=== PATIENT | female | born 1960 | race African-American/Black ===

== ENCOUNTER 2020-08-23 07:56 | Outpatient (REF) | payer OTHER, SELFPAY | END 2020-08-23 07:57 | disposition home or self-care (01) | LOC: HO.LAB 07:56 | PROVIDERS: Visit Provider Internal Medicine | DX: Z20.822 Contact with and (suspected) exposure to COVID-19 (principal) | CPT/HCPCS: 36415; C9803; U0003 ==

== ENCOUNTER 2020-09-06 12:48 | Outpatient (REF) | payer OTHER, SELFPAY | END 2020-09-06 12:49 | disposition home or self-care (01) | LOC: HO.LAB 12:48 | PROVIDERS: PCP Internal Medicine; Visit Provider Internal Medicine | DX: Z20.822 Contact with and (suspected) exposure to COVID-19 (principal) | CPT/HCPCS: 36415; C9803; U0003 ==

== ENCOUNTER 2021-05-02 13:27 | Outpatient (REF) | payer OTHER, SELFPAY | END 2021-05-02 13:28 | disposition home or self-care (01) | LOC: HO.LAB 13:27 | PROVIDERS: Visit Provider Internal Medicine | DX: Z20.822 Contact with and (suspected) exposure to COVID-19 (principal) | CPT/HCPCS: C9803; U0003; U0005 ==

== ENCOUNTER 2021-05-23 08:42 | Outpatient (REF) | payer OTHER, SELFPAY ==
[2021-05-23 10:15] LABS: Anion Gap 11 (12-20); Blood Urea Nitrogen 8 mg/dL (9-16); Calcium 9.6 mg/dL (8.4-10.2); Carbon Dioxide 31 mmol/L (22-29); Chloride 105 mmol/L (96-108); Cholesterol 218 mg/dL; Estimated Glomerular Filt Rate > 60; Glucose Random 82 mg/dL (60-115); HDL Cholesterol 41 mg/dL; LDL Cholesterol Calculated 135 mg/dl; Potassium 4.6 mmol/L (3.3-5.1); Sodium 142 mmol/L (135-145); Triglycerides 212 mg/dL
[2021-05-23 10:24] LABS: Estimated Average Glucose 108 mg/dL; Hemoglobin A1c % 5.4 %
[2021-05-23 10:39] LABS: T4 Thyroxine 7.9 ug/dL (4.5-12.0); Thyroid Stimulating Hormone 0.63 uIU/mL (0.32-4.0)
[2021-05-23 12:28] LABS: Creatinine Urine 29.75 mg/dL; Microalbumin Urine < 5.0 mg/L
[2021-05-26 19:41] LABS: Triiodothyronine T3 Free 3.1 pg/mL (2.3-4.2)
== END 2021-05-23 08:43 | disposition home or self-care (01) ==
LOC: HO.LAB 08:42
PROVIDERS: PCP Family Medicine; Visit Provider Family Medicine
DX: Z00.00 Encounter for general adult medical examination without abnormal findings (principal)
CPT/HCPCS: 36415; 80048; 80061; 82043; 83036; 84436; 84443; 84481

== ENCOUNTER 2021-06-20 11:05 | Outpatient (REF) | payer OTHER, SELFPAY ==
--- NOTE | ~2021-06-20 | MM_ITS ---
EXAMINATION: MM SCREENING DIGITAL BREAST TOMOSYNTHESIS, BILATERAL CLINICAL INFORMATION: Screening. Asymptomatic. The lifetime risk of breast cancer based on the Tyrer-Cuzick Model is 8%. COMPARISON: Mammography: 03/26/2017, 12/28/2015, 09/28/2014 TECHNIQUE: Digital breast tomosynthesis is performed in both the craniocaudal and mediolateral oblique views along with computer-aided detection (CAD). Synthesized 2D images are generated from the tomosynthesis. FINDINGS: The breasts are heterogeneously dense, which may obscure small masses (ACR BI-RADS breast composition Category c). There are no significant masses, abnormal calcifications, or other abnormalities. Parenchymal pattern is similar to prior studies. No developing density. There is a stable circumscribed nodule posterior 9:00 right breast likely intramammary node. There are scattered benign round calcifications. The axilla and skin contours are unremarkable. MM/MM tomosynthesis screening BI IMPRESSION: No mammographic evidence of malignancy. ASSESSMENT: BI-RADS 2: Benign RECOMMENDATION: Routine annual mammography screening. This patient's information was entered into a reminder system with a target due date for their next mammogram.
== END 2021-06-20 11:06 | disposition home or self-care (01) ==
LOC: HO.MAMMO 11:05
PROVIDERS: Visit Provider Family Medicine
DX: Z12.31 Encounter for screening mammogram for malignant neoplasm of breast (principal)
CPT/HCPCS: 77063; 77067

== ENCOUNTER 2022-03-04 09:12 | Emergency (ER) | payer OTHER, SELFPAY ==
[2022-03-04 09:23] VITALS: BP 142/77; PULSE 74; O2SAT 100
[2022-03-04 09:36] VITALS: BP 123/50; PULSE 70; RESP 18; TEMP 36.8; O2SAT 98; BMI 27.1
== END 2022-03-04 13:50 | disposition left against medical advice (07) ==
LOC: HO.ED 16:17
PROVIDERS: Emergency Provider Emergency Medicine
DX: R42 Dizziness and giddiness (principal); R11.0 Nausea; E78.00 Pure hypercholesterolemia, unspecified; F17.210 Nicotine dependence, cigarettes, uncomplicated
CPT/HCPCS: 99281

== ENCOUNTER → 2022-06-09 07:42 | Outpatient (BNVA) | payer OTHER, SELFPAY | PROVIDERS: PCP Family Medicine; Visit Provider Obstetrics & Gynecology | DX: N95.2 Postmenopausal atrophic vaginitis (principal) | CPT/HCPCS: 99202 ==

== ENCOUNTER 2022-06-26 10:33 | Outpatient (REF) | payer OTHER, SELFPAY ==
--- NOTE | ~2022-06-26 | MM_ITS ---
EXAMINATION: MM SCREENING DIGITAL BREAST TOMOSYNTHESIS, BILATERAL CLINICAL INFORMATION: Screening. Asymptomatic. Family history breast cancer, daughter. The lifetime risk of breast cancer based on the Tyrer-Cuzick Model is 6%. COMPARISON: Mammography: 06/20/2021, 03/26/2017, 12/28/2015 TECHNIQUE: Digital breast tomosynthesis is performed in both the craniocaudal and mediolateral oblique views along with computer-aided detection (CAD). Synthesized 2D images are generated from the tomosynthesis. Additional left exaggerated CC view is provided. FINDINGS: The breasts are heterogeneously dense, which may obscure small masses (ACR BI-RADS breast composition Category c). There are no significant masses, abnormal calcifications, or other abnormalities. Parenchymal pattern is similar to prior studies. No developing density. Small circumscribed nodule posterior 9:00 right breast stable. There are scattered round and vascular calcifications again seen. No significant changes from prior exams. MM/MM tomosynthesis screening BI IMPRESSION: No mammographic evidence of malignancy. ASSESSMENT: BI-RADS 2: Benign RECOMMENDATION: Routine annual mammography screening. This patient's information was entered into a reminder system with a target due date for their next mammogram.
== END 2022-06-26 10:34 | disposition home or self-care (01) ==
LOC: HO.MAMMO 10:33
PROVIDERS: Visit Provider Family Medicine
DX: Z12.31 Encounter for screening mammogram for malignant neoplasm of breast (principal)
CPT/HCPCS: 77063; 77067

== ENCOUNTER 2023-02-12 06:46 | Outpatient (REF) | payer OTHER, SELFPAY | END 2023-02-12 06:47 | disposition home or self-care (01) | LOC: HO.LAB 06:46 | PROVIDERS: PCP Family Medicine; Visit Provider Family Medicine | DX: R42 Dizziness and giddiness (principal) | CPT/HCPCS: 36415; 80053; 80061; 83036; 84443; 85025 ==

== ENCOUNTER 2023-03-26 11:00 | Outpatient (RCR) | payer OTHER, SELFPAY ==
[2023-01-22 08:11] VITALS: BP 116/60
== END 2023-04-15 08:04 | disposition home or self-care (01) ==
LOC: HO.PT 11:00
PROVIDERS: PCP Family Medicine; Visit Provider Family Medicine
DX: R42 Dizziness and giddiness (principal)
CPT/HCPCS: 95992; 97112; 97140; 97162

== ENCOUNTER 2023-12-24 08:45 | Outpatient (REF) | payer OTHER, SELFPAY ==
[2023-12-24 08:55] LABS: MANUAL DIFF FLAG NO
[2023-12-24 09:15] LABS: Basophils Percent Auto 0.5 % (0-2); Eosinophils Absolute Auto 0.2 X10*3/uL (0.0-0.4); Hematocrit 42.7 % (37.0-47.0); Hemoglobin 13.2 g/dl (12.0-16.0); Imm Gran Abs Auto 0.05 X10*3/uL (0.00-0.03); Imm Gran Pct Auto 0.7 % (0.0-0.4); Lymphocytes Absolute Auto 2.2 X10*3/uL (1.2-4.9); Lymphocytes Percent Auto 28.5 % (20-40); Mean Corpuscular HGB Conc 30.9 g/dl (31.0-35.0); Mean Corpuscular Hemoglobin 28.1 pg (27.0-33.0); Mean Platelet Volume 10.4 fL (9.4-12.3); Monocytes Absolute Auto 0.7 X10*3/uL (0.1-1.2); Monocytes Percent Auto 9.8 % (2-11); Neutrophils Absolute Auto 4.4 x10*3/uL (2.0-8.3); Neutrophils Percent Auto 58.5 % (45-73); Platelet Count 271 X10*3/uL (160-400); Red Blood Count 4.69 X10*6/uL (4.20-5.50); White Blood Count 7.5 X10*3/uL (4.8-10.8)
[2023-12-24 09:54] LABS: Erythrocyte Sedimentation Rate 23 MM/HR (0-20)
[2023-12-24 10:00] LABS: Alanine Aminotransferase 23 U/L (0-31); Albumin Level 3.8 g/dL (3.5-5.0); Alkaline Phosphatase 110 U/L (39-117); Anion Gap 12 (12-20); Aspartate Amino Transferase 21 U/L (5-31); Bilirubin Total 0.2 mg/dL (0.0-1.0); Blood Urea Nitrogen 10 mg/dL (9-16); C Reactive Protein 0.43 mg/dL (< or = 0.50); Calcium 8.6 mg/dL (8.4-10.2); Carbon Dioxide 27 mmol/L (22-29); Chloride 107 mmol/L (96-108); Cholesterol 199 mg/dL (<200); Estimated Glomerular Filt Rate > 60; Glucose Random 85 mg/dL (60-115); HDL Cholesterol 37 mg/dL (>40); LDL Cholesterol Calculated 119 mg/dL (<100); Potassium 3.9 mmol/L (3.3-5.1); Sodium 142 mmol/L (135-145); Total Protein 6.9 g/dL (6.5-8.0); Triglycerides 216 mg/dL (<150)
[2023-12-24 10:34] LABS: Rheumatoid Factor < 13.0 IU/mL (<15.0)
[2023-12-28 13:48] LABS: Anti Nuclear Antibody Screen NEGATIVE (NEGATIVE)
[2023-12-28 15:23] LABS: Cyclic Citrullinated Peptide <16 UNITS
== END 2023-12-24 08:46 | disposition home or self-care (01) ==
LOC: HO.LAB 08:45
PROVIDERS: PCP Family Medicine; Visit Provider Family Medicine
DX: M25.50 Pain in unspecified joint (principal); Z13.9 Encounter for screening, unspecified
CPT/HCPCS: 36415; 80053; 80061; 85025; 85652; 86038; 86140; 86200; 86431

== ENCOUNTER 2024-04-14 09:27 | Outpatient (REF) | payer OTHER, SELFPAY ==
--- NOTE | ~2024-04-14 | XR_ITS ---
EXAMINATION: XR KNEE, RIGHT CLINICAL INFORMATION: Right knee pain, unsteady gait COMPARISON: None available. TECHNIQUE: Three views of the right knee. FINDINGS: No fracture. No significant joint effusion. No significant degenerative findings. XR/XR knee RT 3V IMPRESSION: Normal right knee. Electronically signed by: Betito Sawant MD 04/20/2024 09:08 AM EDT
== END 2024-04-14 09:28 | disposition home or self-care (01) ==
LOC: HO.XRAY 09:27
PROVIDERS: PCP Family Medicine; Visit Provider Family Medicine
DX: M25.561 Pain in right knee (principal)
CPT/HCPCS: 73562

== ENCOUNTER 2024-04-28 08:38 | Outpatient (AMB) | payer OTHER, SELFPAY ==
--- NOTE | 2024-04-28 08:44 | A.OFFVIS_ITS ---
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 patient reports ongoing pain for about 2 month. No hx of injury. She mentions that she is unable to fully extend her knee, also her pain is on the medial aspect. Pain is worse when being on her feet for a long period of time. Patient has tried and failed gabapentin and NSAIDs. Director Of Software Engineering Services: Director Of Software Engineering Present (Nora ([id number])) Allergies aspirin [ASA] Allergy (Severe, Verified 04/28/24 08:51) DIFFICULTY BREATHING latex [LATEX] Allergy (Unknown, Verified 04/28/24 08:51) RASH,ITCHING seafood Allergy (Unknown, Verified 04/28/24 08:51) Unknown HPI HPI STAFF NURSE ICU RESOURCE TEAM - Right knee pain: Details: 63-year-old female, who is Greenlandic speaking, presents in the office today for an evaluation of right knee pain. The patient was evaluated on 03/24/24 with a complaint of right knee that had been present for about a month. She also reported the pain was accompanied by edema and decreased ROM due to discomfort. X-rays and an MRI were ordered for further evaluation. ? ? While in the office today, the patient reports ongoing pain for two months. She claims she is unable to fully extend the right knee. She reports her pain is along the medial aspect and increases when being on her feet for a long period of time. She has tried and failed gabapentin and NSAIDs. She denies any history of injury.? PFSH Medical History Dizziness GERD (gastroesophageal reflux disease) Pure hypercholesterolemia Surgical History H/O left breast biopsy History of section History of lithotripsy History of tubal ligation Family History Father No problems noted. Mother Hypertension CVD (cardiovascular disease) Maternal Grandmother Lung cancer Maternal Grandfather Esophageal cancer Paternal Grandmother Stomach cancer Paternal Grandfather Cancer Family/Other FH: mental illness Social History Household Members: Spouse Housing: House Alcohol intake: never Patient Tobacco Use Status: Current everyday Tobacco user Tobacco use type: Cigarette Cigarettes Per Day: 4 Years Smoked: 25 Current occupational status: employed Current occupation: [employer] Sexual orientation: Straight/Heterosexual Gender identity: Female Review of Systems Const All systems reviewed & are unremarkable except as noted in HPI and below Physical Exam Vital Signs: BMI result Body Mass Index 27.5 Const General: cooperative and no acute distress Orientation/consciousness: patient oriented x3 Resp Effort & Inspection: normal respiratory effort and able to speak in complete sentences Cardio Peripheral pulses: Peripheral pulses 2+ throughout Skin General skin exam: no rashes or lesions noted Neuro General: patient oriented x3 Extrem Other: Right knee: Normal to inspection. No ecchymosis, erythema, or joint effusion. No tenderness to palpation along the lateral joint line. Exquisite tenderness to the medial joint line. ROM is 0-90 degrees. Unable to perform Honorio's or anterior drawer due to patient guarding and pain. ? Office Procedures Joint Injection/Aspiration Joint Injection/Aspiration Primary Site: right knee Prep: site was prepped using aseptic technique, ethochloride spray was applied and injection warnings given Injected: 80 mg of, DepoMedrol, with 8 mL of (2% plain lido ) and in the joint Approach Used: anterolateral Procedure: The patient tolerated the procedure well, but had some pain with the injection and there was some relief with the local anesthesia Coding 28339 - Large joint Procedure code (CPT) selection complete Assessment & Plan Assessment & Plan (1) Internal derangement of right knee: Code(s): M23.91 - Unspecified internal derangement of right knee Category: Medical Plan Ms. Garcia is a 63-year-old female, who is Greenlandic speaking, presents in the office today for an evaluation of right knee pain. The patient was evaluated on 03/24/24 with a complaint of right knee that had been present for about a month. She also reported the pain was accompanied by edema and decreased ROM due to discomfort. X-rays and an MRI were ordered for further evaluation. ? ? While in the office today, the patient reports ongoing pain for two months. She claims she is unable to fully extend the right knee. She reports her pain is a long the medial aspect and increases when being on her feet for a long period of time. She has tried and failed gabapentin and NSAIDs. She denies any history of injury.? ? The patient was offered a cortisone injection in the right knee with 80 mg of Depo-Medrol. The patient was explained the risks, benefits, and alternatives to receiving this injection. After receiving consent for the injection, the patient had the procedure done while in the office today. The patient tolerated the procedure well with no complications.? ? The patient has an MRI scheduled for Sunday 05/06. She will call the office on Tuesday 05/08 to let us know this was obtained and we will monitor for results. Follow-up will be after the MRI is obtained, or sooner if needed. ? ? X-rays of the right knee, obtained on 04/14/24, revealed: no acute fracture or dislocation. ? Patient Instructions: Scribed by Antonella Aguilar medical assistant ob gyn, for Deneen Bettye SERNA on 04/28/2024 at 9:02 am, EST.? Coding Level of Care Code New Pt Level 4 (83629) Diagnoses Internal derangement of right knee M23.91 CPT Codes Coding - 42150 Large joint: 19554 - Large joint ([id number])
[2024-04-28 08:52] VITALS: BMI 27.5
== END 2024-04-28 09:32 | disposition home or self-care (01) ==
PROVIDERS: PCP Family Medicine; Visit Provider Physician Assistant
DX: M23.91 Unspecified internal derangement of right knee (principal)
CPT/HCPCS: 20610; 99204

== ENCOUNTER → 2024-04-28 08:38 | Outpatient (BNVA) | payer OTHER, SELFPAY | PROVIDERS: PCP Family Medicine; Visit Provider Physician Assistant | DX: M23.91 Unspecified internal derangement of right knee (principal) | CPT/HCPCS: 20610; 99202; J1010 ==

== ENCOUNTER 2024-11-08 17:31 | Emergency (ER) | payer MEDICARE, SELFPAY ==
[2024-11-08] VITALS (7 sets, daily range): BP systolic 123–172; BP diastolic 49–71; PULSE 58–90; RESP 16; TEMP 36.5–36.7; O2SAT 97–100; BMI 30.1
--- NOTE | ~2024-11-08 | CT_ITS ---
CLINICAL HISTORY: dizziness, headache CT head without contrast Comparison: None Findings: 5 mm low-density lesion is nonspecific in the left frontal lobe. Differential considerations include small infarction and white matter pathology. Other lesions not excluded, particularly given contralateral small focus of low-density. No acute intracranial hemorrhage or midline shift. No hydrocephalus. Bilateral basal ganglia mineralization noted. No acute skull fracture. Fluid and mucosal thickening is mild in the paranasal sinuses. Small left mastoid effusion. Scalp calcifications are small nonspecific. IMPRESSION: 1. No acute intracranial hemorrhage or hydrocephalus. 2. No arterial territorial infarction by CT. 3. Small bifrontal lesions are nonspecific by CT. Recommend additional characterization with nonemergent MRI of the brain with and without contrast. This document has been electronically signed by: Jonathon Pena MD on 11/08/2024 22:30:50
--- NOTE | 2024-11-08 18:58 | ECG_ITS ---
Test Reason : DIZZINESS Blood Pressure : */* mmHG Vent. Rate : 63 BPM Atrial Rate : 63 BPM P-R Int : 146 ms QRS Dur : 76 ms QT Int : 438 ms P-R-T Axes : 42 50 16 degrees QTcB Int : 448 ms Normal sinus rhythm Septal infarct , age undetermined Abnormal ECG When compared with ECG of 22-Mar-2018 10:02, Septal infarct is now Present Referred By: Inez Lucero Electronically Signed By: HILARIA ESCALANTE
--- NOTE | 2024-11-08 18:58 | ED.DIZZY ---
HPI - Dizziness General Chief Complaint: Dizziness Stated Complaint: hx vertigo, dizziness, nausea x2 days Time Seen by Provider: 11/08/24 18:01 Source: patient and EMS Mode of arrival: EMS Limitations: no limitations History of Present Illness ED Provider: nayla mann NP HPI Narrative: Patient is a 63-year-old female who presents emergency department for evaluation of dizziness Described as a room spinning sensation, vomiting, right-sided headache, shortness of breath . All of which is typical when she experiences episodes of vertigo. Symptoms exacerbated with head movement and eye movement. Reports onset of dizziness described as severe vertigo with onset 3 days ago overall pretty persistent despite using her meclizine 3 times daily she has not noticed any. She has been prescribed Phenergan suppositories in the past for severe vertigo but has not taken this because she simply did not want to use the suppository. She vomited 2 times a yesterday 3-4 times today, without associated abdominal pain. She admitted that earlier today she was experiencing chest pain associated with this, but believes this was due to the vomiting. Currently she is without active chest pain. she denies any recent fall or head injury, no use of anticoagulants or known coagulation disorders. Denies any numbness or tingling of the extremities. Related Data Home Medications ?Medication ?Instructions ?Recorded ?Confirmed fluticasone propionate 50 intranasal 07/15/20 07/15/20 mcg/actuation nasal spray,suspension montelukast 10 mg tablet 10 mg PO DAILY 06/09/22 (Singulair) pregabalin 50 mg capsule (Lyrica) 50 mg PO TID 06/09/22 venlafaxine 150 mg 150 mg PO DAILY 06/09/22 capsule,extended release 24 hr (Effexor XR) epinephrine 0.3 mg/0.3 mL 1 mg IM DAILY 04/28/24 injection, auto-injector gabapentin 300 mg capsule 300 mg PO TID 04/28/24 Previous Rx's ?Medication ?Instructions ?Recorded amitriptyline 50 mg tablet 50 mg PO BEDTIME #90 tabs 07/19/20 omeprazole 20 mg capsule,delayed 20 mg PO BID #180 caps 07/19/20 release meclizine 25 mg tablet 25 mg PO TID PRN for dizziness #90 09/23/20 tabs Allergies Allergy/AdvReac Type Severity Reaction Status Date / Time aspirin [ASA] Allergy Severe DIFFICULTY Verified 11/08/24 17:53 BREATHING latex [LATEX] Allergy Unknown RASH,ITCHIN Verified 11/08/24 17:53 G seafood Allergy Unknown Unknown Verified 11/08/24 17:53 Review of Systems Review of Systems: Yes all other systems are reviewed and are negative [facility] Past Medical History Attestation statement: The following information was validated with the patient. Source: old records reviewed Medical History Pure hypercholesterolemia GERD (gastroesophageal reflux disease) Dizziness Surgical History History of section H/O left breast biopsy History of lithotripsy History of tubal ligation Family History Family History Father No problems noted. Mother Hypertension CVD (cardiovascular disease) Maternal Grandmother Lung cancer Maternal Grandfather Esophageal cancer Paternal Grandmother Stomach cancer Paternal Grandfather Cancer Family/Other FH: mental illness Social History Social History Household Members: Spouse Housing: House Alcohol intake: never Patient Tobacco Use Status: Current everyday Tobacco user Tobacco use type: Cigarette Cigarettes Per Day: 4 Years Smoked: 25 Smoked in Last 30 Days: Yes Use of substances other than those prescribed or required for medical reasons: No Advance Directives: No Advance Directives Information Provided: Yes Do you have a plan to hurt others: No Plan Current occupational status: employed Current occupation: [email or web address] Sexual orientation: Straight/Heterosexual Gender identity: Female Physical Exam Vital Signs: Vital Signs: Last Vital Signs Temp 97.7 F 11/08/24 21:54 Pulse 61 11/08/24 21:54 Resp 16 11/08/24 21:54 BP 138/54 L 11/08/24 21:54 Pulse Ox 100 11/08/24 21:54 O2 Del Method Room Air 11/08/24 21:54 BMI result Body Mass Index 30.1 Appearance: Alert.?Oriented to person, place and time. No acute distress.?Normal affect. Head: Normocephalic, atraumatic. No head, sinus or TMJ tenderness.? Eyes: Sclera white, conjunctiva pink. PERRL, 3 mm bilaterally. Visual drake full to confrontation, EOMi.?No Nystagmus. Ears: Bilateral ear canals clear, TM visible with good cone of light.? Nose: Nasal mucosa pink and moist with midline septum, nares patent bilaterally.? Mouth/ Throat: Oral mucosa pink and moist without lesions. Pharynx normal Neck: Normal inspection.? Neck supple.?? CVS: Heart sounds normal. Normal heart rate and rhythm.? Pulses normal.?? Respiratory: No respiratory distress.? Lung sounds clear to auscultation bilaterally?? Abdomen: Soft and non-tender. Normoactive bowel sounds. No pulsatile mass.?? Skin: Skin warm and dry.? Normal skin color.? Normal skin turgor.?? Extremities: No lower extremity edema. Neuro: No focal neurological deficit observed, CN II-XII intact, normal sensory observed, normal coordination observed. Level of consciousness: Appropriate for age. Motor strength: right upper extremity 5 /5, left upper extremity 5 /5, right lower extremity 5 /5, left lower extremity 5 /5.?Speech: Normal, Gait: Normal, Kkwlko-[id number]-flkc test: Normal, Kmwi-mv-[id number] test: Normal. Ambulates with normal steady gait. Course Reevaluation(s) Reevaluation #1: Patient reports significant symptomatic improvement in her dizziness after receiving Phenergan and IV fluids. She does still remain with mild symptoms of vertigo but notably improved from arrival. Orthostatic vital signs were negative. CBC is without leukocytosis, anemia, or thrombocytopenia. D-dimer of 208, below VTE cutoff of 230, Wells Low risk, no tachycardia tachypnea hypoxia or chest pain. Electrolytes without acute abnormality. No ASHLEY. LFTs overall unremarkable. High sensitive troponin below detectable limits, EKG nonischemic revealing a normal sinus rhythm with ventricular rate of 63, QTC of 448. Minimally elevated inflammatory markers with ESR 48, CRP 1.68, does not have pain localized to the temporal region throbbing type headache. Urinalysis is without evidence of infection. Viral serologies are negative. Physical exam is without acute otologic process. She does state that this is a very severe episode , pending head CT to exclude acute intracranial pathology Reevaluation #2: IMPRESSION: 1. No acute intracranial hemorrhage or hydrocephalus. 2. No arterial territorial infarction by CT. 3. Small bifrontal lesions are nonspecific by CT. Recommend additional characterization with nonemergent MRI of the brain with and without contrast. Reviewed these findings with my attending Dr. Card addition to patient's presenting symptoms, do not feel as though the bifrontal lesions are an etiology for her worsening episode of vertigo today. Patient feels much improved since her arrival. She is requesting discharge home which I feel is reasonable. She is ambulatory with steady gait. Cerebellar function testing is normal. Advised outpatient follow-up with primary care provider. She was made aware of the CT findings. Reviewed worrisome signs and symptoms that would warrant re-evaluation in the emergency department. Medications Administered Discontinued Medications Generic Name Dose Route Start Last Admin Trade Name Freq PRN Reason Stop Dose Admin Sodium Chloride 1,000 mls @ 999 mls/hr 11/08/24 19:00 11/08/24 21:21 Ns IV 11/08/24 20:00 Infused .Q1H1M SHADE Infusion Promethazine HCl 25 mg 11/08/24 18:57 11/08/24 19:49 Promethazine Hcl 25 Mg Tablet PO 11/08/24 18:58 25 mg ONCE ONE Administration Medical Decision Making Medical Decision Making [facility] Narrative: Patient is a 63-year-old female past medical history of hypercholesterolemia, GERD, arthritis, vertigo who presents emergency department for evaluation of what she believes to be an episode of severe vertigo over the past 3 days with associated dizziness described as room spinning sensation vomiting right-sided headache shortness of breath and chest pain that has since resolved. She appears uncomfortable, having photosensitivity with the lights dimmed in the room. She is without hypotension, she is without signs of systemic toxicity afebrile without tachycardia tachypnea or hypoxia. She is speaking clear full sentences. On evaluation does not have any focal neurological deficits. She has no spontaneous or gaze evoked nystagmus no ataxia no diplopia no dysarthria no dysphagia no dysphonia no dysmetria. Will obtain CBC to evaluate for leukocytosis/ anemia, CMP to evaluate for abnormal electrolytes /abnormal renal function/ abnormal hepatic function, EKG and troponin to evaluate for ischemia/ACS, And with the associated shortness of breath will obtain D- dimer to exclude pulmonary embolism. Given the sudden onset of dizziness, severe intensity, episodic nature, this may in fact be consistent with BPPV as it is triggered with certain head movements eliciting dizziness. Differential Diagnosis Differential Diagnoses: The differential diagnosis associated with the presentation includes ( see narrative above) Admission/Observation Consideration of admission/observation: Escalation of care including admission/observation considered Lab Data MDM Lab Attestation statement: I reviewed the patient's lab results. 11/08/24 19:26 11/08/24 19:26 Labs: Lab Results 11/08/24 Range/Units 19:26 WBC 9.1 (4.8-10.8) X10*3/uL RBC 4.59 (4.20-5.50) X10*6/uL Hgb 13.3 (12.0-16.0) g/dl Hct 40.3 (37.0-47.0) % MCV 87.8 (80.0-98.0) fL MCH 29.0 (27.0-33.0) pg MCHC 33.0 (31.0-35.0) g/dl RDW 15.1 (11.0-16.0) % Plt Count 279 (160-400) X10*3/uL MPV 10.1 (9.4-12.3) fL Immature Gran % (Auto) 0.6 H (0.0-0.4) % Neut % (Auto) 70.8 (45-73) % Lymph % (Auto) 21.3 (20-40) % Weston % (Auto) 6.2 (2-11) % Eos % (Auto) 0.9 (0-4) % Baso % (Auto) 0.2 (0-2) % Lymph # (Auto) 1.9 (1.2-4.9) X10*3/uL Weston # (Auto) 0.6 (0.1-1.2) X10*3/uL Eos # (Auto) 0.1 (0.0-0.4) X10*3/uL Baso # (Auto) 0.0 (0.0-0.2) X10*3/uL Abs Immat Gran (auto) 0.05 H (0.00-0.03) X10*3/uL Absolute Neuts (auto) 6.4 (2.0-8.3) x10*3/uL Absolute Nucleated RBC 0.000 (0.0-0.012) X10*3/uL Nucleated RBC % (auto) 0.0 (0.0-0.2) /100WBC ESR 48 H (0-20) MM/HR D-Dimer High Sensitivty 208 NG/ML Sodium 142 (135-145) mmol/L Potassium 3.8 (3.3-5.1) mmol/L Chloride 108 (96-108) mmol/L Carbon Dioxide 26 (22-29) mmol/L Anion Gap 12 (12-20) BUN 12 (9-16) mg/dL Creatinine 0.61 (0.5-1.4) mg/dL Estim Creat Clear Calc 97.2 Estimated GFR > 60 Random Glucose 102 (60-115) mg/dL Calcium 9.4 D (8.4-10.2) mg/dL Magnesium 2.3 (1.6-2.6) mg/dL Total Bilirubin 0.2 (0.0-1.0) mg/dL AST 32 H (5-31) U/L ALT 23 (0-31) U/L Alkaline Phosphatase 101 (39-117) U/L Troponin I High Sens < 2.7 (<3.5-17.0) ng/L C-Reactive Protein 1.68 H (< or = 0.50) mg/dL Total Protein 7.2 (6.5-8.0) g/dL Albumin 4.0 (3.5-5.0) g/dL Urine Color Yellow Urine Appearance Clear Urine pH >= 9.0 (5.0-9.0) Ur Specific [place] 1.010 (1.005-1.025) Urine Protein Negative (Neg-Trace) mg/dL Urine Glucose (UA) Negative (Negative) mg/dL Urine Ketones Negative (Negative) mg/dL Urine Blood Negative (Negative) Urine Nitrite Negative (Negative) Ur Leukocyte Esterase Negative (Negative) Influenza Type A (PCR) NEGATIVE (Negative) Influenza Type B (PCR) NEGATIVE (Negative) RSV RNA Qual (PCR) NEGATIVE (Negative) SARS-CoV-2 RNA (RT-PCR) NEGATIVE (Negative) Independent Interpretation I performed an independent interpretation of an: EKG ( EKG reveals a normal sinus rhythm with ventricular rate of 63, QTC of 448, no ST elevation, Q-wave in V1 - V2, T-wave inversion lead III) Radiology Impression Discussion of test interpretation with radiology: I have reviewed the radiologist's reading. Radiologist Impression: IMPRESSION: 1. No acute intracranial hemorrhage or hydrocephalus. 2. No arterial territorial infarction by CT. 3. Small bifrontal lesions are nonspecific by CT. Recommend additional characterization with nonemergent MRI of the brain with and without contrast. Independent Historian Clinical information obtained from an independent historian. History obtained from or confirmed by: Spouse and EMS External Record Review External record reviewed: Outpatient record Chronic Conditions Patient?s care impacted by: Other ( see narrative above) Discharge Plan Discharge Clinical Impression: Vertigo, Brain lesion Patient Disposition: Home, Self-Care Instructions: Vertigo (ED) Additional Instructions: You were seen in the emergency department for evaluation of your severe episode of vertigo, you received IV fluids in addition to Phenergan with improvement in your symptoms. Blood work today was very reassuring. As discussed there was an incidental finding on the CT imaging of your brain showing lesions in the bilateral frontal areas of the brain that warrants outpatient follow-up with your primary care provider. Please contact their office tomorrow to make them aware of these findings. Return back to emergency department any new or worsening symptoms or concerns. IMPRESSION: 1. No acute intracranial hemorrhage or hydrocephalus. 2. No arterial territorial infarction by CT. 3. Small bifrontal lesions are nonspecific by CT. Recommend additional characterization with nonemergent MRI of the brain with and without contrast. Prescriptions: No Action amitriptyline 50 mg tablet 50 mg PO BEDTIME Qty: 90 1RF omeprazole 20 mg capsule,delayed release(DR/EC) 20 mg PO BID Qty: 180 1RF meclizine 25 mg tablet 25 mg PO TID PRN (Reason: for dizziness) Qty: 90 3RF fluticasone propionate 50 mcg/actuation spray,suspension intranasal venlafaxine [Effexor XR] 150 mg capsule,extended release 24hr 150 mg PO DAILY montelukast [Singulair] 10 mg tablet 10 mg PO DAILY pregabalin [Lyrica] 50 mg capsule 50 mg PO TID gabapentin 300 mg capsule 300 mg PO TID epinephrine 0.3 mg/0.3 mL auto-injector 1 mg IM DAILY Referrals: Charlee Galindo MD [Primary Care Provider] - Print Language: Azeri
[2024-11-08 19:34] LABS: MANUAL DIFF FLAG NO
[2024-11-08 19:36] LABS: Basophils Percent Auto 0.2 % (0-2); Eosinophils Absolute Auto 0.1 X10*3/uL (0.0-0.4); Eosinophils Percent Auto 0.9 % (0-4); Hematocrit 40.3 % (37.0-47.0); Hemoglobin 13.3 g/dl (12.0-16.0); Imm Gran Abs Auto 0.05 X10*3/uL (0.00-0.03); Imm Gran Pct Auto 0.6 % (0.0-0.4); Lymphocytes Absolute Auto 1.9 X10*3/uL (1.2-4.9); Lymphocytes Percent Auto 21.3 % (20-40); Mean Corpuscular Volume 87.8 fL (80.0-98.0); Mean Platelet Volume 10.1 fL (9.4-12.3); Monocytes Absolute Auto 0.6 X10*3/uL (0.1-1.2); Monocytes Percent Auto 6.2 % (2-11); Neutrophils Absolute Auto 6.4 x10*3/uL (2.0-8.3); Neutrophils Percent Auto 70.8 % (45-73); Platelet Count 279 X10*3/uL (160-400); Red Blood Count 4.59 X10*6/uL (4.20-5.50); Red Cell Distribution Width 15.1 % (11.0-16.0); White Blood Count 9.1 X10*3/uL (4.8-10.8)
[2024-11-08 19:39] LABS: Appearance Urine Clear; Color Urine Yellow; Glucose Urine UA Negative (Negative); Leukocyte Esterase Urine Negative (Negative); Nitrite Urine Negative (Negative); PH >= 9.0 (5.0-9.0); Urine Blood Negative (Negative); Urine Ketones Negative (Negative); Urine Protein Negative (Neg-Trace)
[2024-11-08 19:42] LABS: D Dimer High Sensitivity 208 NG/ML
[2024-11-08 19:47] LABS: C Reactive Protein 1.68 mg/dL (< or = 0.50)
[2024-11-08 19:49] LABS: Alanine Aminotransferase 23 U/L (0-31); Alkaline Phosphatase 101 U/L (39-117); Anion Gap 12 (12-20); Aspartate Amino Transferase 32 U/L (5-31); Bilirubin Total 0.2 mg/dL (0.0-1.0); Blood Urea Nitrogen 12 mg/dL (9-16); Calcium 9.4 mg/dL (8.4-10.2); Carbon Dioxide 26 mmol/L (22-29); Chloride 108 mmol/L (96-108); Creatinine Clr Calc Pharmacy 97.2; Estimated Glomerular Filt Rate > 60; Glucose Random 102 mg/dL (60-115); Magnesium 2.3 mg/dL (1.6-2.6); Potassium 3.8 mmol/L (3.3-5.1); Sodium 142 mmol/L (135-145); Total Protein 7.2 g/dL (6.5-8.0)
[2024-11-08] MEDS: Promethazine HCL 25 MG TABLET PO (19:49)
[2024-11-08] MEDS: 0.9 % Sodium Chloride 1,000 ML 999 ML IV (19:51)
[2024-11-08 19:58] LABS: Troponin-I High Sensitivity < 2.7 ng/L (<3.5-17.0)
[2024-11-08 20:12] LABS: Influenza A PCR NEGATIVE (Negative); Influenza B PCR NEGATIVE (Negative); Resp Syncy Virus RNA Qual PCR NEGATIVE (Negative); SARS COV2 PCR INHOUSE NEGATIVE (Negative)
[2024-11-08 20:13] LABS: Erythrocyte Sedimentation Rate 48 MM/HR (0-20)
== END 2024-11-08 23:41 | disposition home or self-care (01) ==
PROVIDERS: Nurse Practitioner Family; Emergency Provider Emergency Medicine Emergency Medical Services; PCP Family Medicine
DX: R42 Dizziness and giddiness (principal); R11.0 Nausea; R94.31 Abnormal electrocardiogram [ECG] [EKG]; Z03.818 Encounter for observation for suspected exposure to other biological agents ruled out; Z79.899 Other long term (current) drug therapy
CPT/HCPCS: 0241U; 36415; 70450; 80053; 81003; 83735; 84484; 85025; 85379; 85652; 86140; 93005; 96360; 99284; 99285

== ENCOUNTER → 2024-11-08 18:58 | Outpatient (BNV) | payer MEDICARE, SELFPAY | PROVIDERS: Emergency Provider Emergency Medicine Emergency Medical Services; PCP Family Medicine; Visit Provider Internal Medicine | DX: R94.31 Abnormal electrocardiogram [ECG] [EKG] (principal); R42 Dizziness and giddiness | CPT/HCPCS: 93010 ==

== ENCOUNTER → 2024-11-08 21:20 | Outpatient (BNV) | payer MEDICARE, SELFPAY | PROVIDERS: Emergency Provider Emergency Medicine Emergency Medical Services; PCP Family Medicine; Visit Provider Radiology Neuroradiology | DX: R90.0 Intracranial space-occupying lesion found on diagnostic imaging of central nervous system (principal) | CPT/HCPCS: 70450 ==

== ENCOUNTER → 2025-02-10 12:30 | Outpatient (BNV) | payer MEDICARE, SELFPAY | PROVIDERS: PCP Family Medicine; Visit Provider Radiology Diagnostic Radiology | DX: G93.89 Other specified disorders of brain (principal) | CPT/HCPCS: 70553 ==

== ENCOUNTER 2025-02-10 12:42 | Outpatient (REF) | payer MEDICARE, SELFPAY ==
--- NOTE | ~2025-02-10 | MR_ITS ---
EXAMINATION: MR BRAIN WITHOUT AND WITH CONTRAST CLINICAL INFORMATION: Bifrontal small white matter lesions seen on CT. Mild headaches and dizziness. COMPARISON: CT head 11/08/2024. No prior MRI. TECHNIQUE: Multiplanar, multisequence MRI of the brain was obtained before and after the intravenous administration of 7.5 mL Gadavist. Examination performed on a 1.5 Jaye Siemens high-field unit. FINDINGS: There is no diffusion restriction. There is no intracranial hemorrhage, acute infarction, mass effect, or edema. Ventricles, sulci, and cisterns are normal in size and configuration for patient age. No shift of midline. No abnormal hemosiderin deposition is identified. There are a numerous scattered punctate and minimally confluent foci of white matter T2 hyperintensity in the periventricular, subcortical, and hemispheric deep white matter. Foci are seen in the central and posterior francisco as well. There are a few T1 hypointense foci. No definite callosal lesions. There are several pericallosal and callosal marginal lesions, raising the possibility of demyelinating disease. In addition, there is diffuse hyperintensity at the callosal septal interface, a finding which can be associated with demyelinating disease. The overall distribution and morphology is nonspecific, and could be related to small vessel ischemic changes and/or inflammatory demyelination. There is no abnormal intra or extra-axial enhancement after the administration of contrast. Midline structures appear normally formed. No callosal atrophy. The pituitary gland appears normal. Posterior fossa structures appear normal. Cerebellar tonsils are minimally low-lying, without meeting criteria for Chiari I malformation. Major flow voids are preserved within the skull base. The globes and orbital contents demonstrate no abnormalities. Optic nerves appear normal in signal. Paranasal sinuses demonstrate minimal mucosal thickening. No significant sinus disease. Nasal septum is midline without spur. The mastoids and tympanic cavities are normally aerated. Extracranial soft tissues demonstrate no abnormalities. No suspicious bone marrow changes are evident. Atlantoaxial joint is normal. MR/MR head/brain wo/w con IMPRESSION: 1. No evidence of intracranial hemorrhage, acute infarction, mass effect, or edema. 2. Numerous scattered punctate and minimally confluent T2 hyperintense white matter foci as described. There are a few T1 hypointense lesions. There are no enhancing lesions and there is no diffusion restriction. Differential includes inflammatory demyelination versus mild to moderate small vessel ischemic changes. 3. No abnormal intra or extra-axial enhancement after contrast administration. Electronically signed by: Og Sandoval MD 02/12/2025 09:25 AM EDT
--- OUTSIDE RECORDS SUMMARY | 2025-02-10 12:44 | XMS_ITS | Encounter Summary ---
Author Organization [employer] Address [address] [place] [address] Care Team Providers Care Patient Coordinator Name Role Phone Charlee Galindo MD Primary Care Provider [phone] Reason for Visit * Reason Comments Med Refill Encounter Details Date Type Department Care Team ([facility] Contact Info) Description 12/05/2024 Refill [facility] [address] [place], [place] [phone] Meggan Wallace MD [address] [place] [address] Vertigo Social History Tobacco Use Types Packs/Day Years Used Date Smoking Tobacco: Every Day Cigarettes Passive Smoke Exposure: Never Smokeless Tobacco: Never Depression Answer Date Recorded Patient Health Questionnaire-9 Score 13 10/29/2023 Patient Health Questionnaire-9 Score 13 10/29/2023 Last PHQ-9: Questionnaire Data Not on file 0 10/29/2023 Housing Stability Answer Date Recorded What is your housing situation today? I have irvin schafer 10/29/[address] you li ve. Do you have problems with any of the following? None of the above 10/29/2023 Food Insecurity Answer Date Recorded Within the past 12 months, y ou worried that your food would run out before you got money to buy more: Never True 10/29/2023 Within the past 12 months,th e food you bought just didn't last and you didn't have enough money to get more: Never True Transportation Answer Date Recorded In the past 12 months, has l ack of transportation kept you from medical appts, meetings, work or from getting things needed for daily living? No 10/29/2023 Utilities Answer Date Recorded In the past 12 months, has t he electric, gas, oil or water company threatened to shut off services in your home? No 10/29/2023 Depression Answer Date Recorded Patient Health Questionnaire-2 Score 2 10/29/2023 Comments No Sex and Gender Information Value Date Recorded Sex Assigned at Female 06/08/2022 10:39 AM EDT Legal Sex Female 10:39 AM EDT Gender Identity Female 06/08/2022 10:39 AM EDT Sexual Orientation Straight 06/08/2022 10 :39 AM EDT documented as of this encounter Plan of Treatment Not on file documented as of this encounter Visit Diagnoses Diagnosis Vertigo Dizziness and giddiness documented in this encounter Additional Health Concerns Assessment Noted Time PHQ-9 Depression Total Score: 13 024 2:35 PM EDT documented as of this encounter Care Teams Patient Coordinator Relationship Specialty Start Date End Date Charlee Galindo MD [address] [place] [id number] PCP - General Family Medicine 05/09/21 documented as of this encounter
== END 2025-02-10 12:43 | disposition home or self-care (01) ==
LOC: HO.MRI 12:42
PROVIDERS: PCP Family Medicine; Visit Provider Family Medicine
DX: G93.9 Disorder of brain, unspecified (principal)
CPT/HCPCS: 70553; A9585

== ENCOUNTER 2025-03-02 14:27 | Outpatient (AMB) | payer MEDICARE, SELFPAY ==
--- OUTSIDE RECORDS SUMMARY | 2023-10-27 09:27 | XMS_ITS | Continuity of Care Document ---
Author Organization [employer] Address [address] [place] [address] Phone Care Team Providers Care Senior Corporate Recruiter Name Role Phone NOV RN, Provider Unavailable Unavailable Allergies, Adverse Reactions, Alerts Substance Reaction Status Criticality aspirin Active No Information Medications Medication Instructions Dosage Effective Dates (start - stop) Status Comments cephalexin 500 mg capsule take 1 capsule by oral route every 6 hours 500 MG - Active clopidogrel 75 mg tablet take 1 tablet by oral route every day 75 MG - Active enalapril maleate 10 mg tablet take 1 tablet by oral route every day 10 MG - Active omeprazole 20 mg tablet,delayed release - Active Procedures Procedure Date OFFICE/OUTPATIENT VISIT EST DIAST BP> = 90 MM HG URINALYSIS NONAUTO W/O SCOPE SYST BP> = 140 MM HG6 IT OFFICE/OUTPATIENT VISIT, NEW URINE CULTURE/COLONY COUNT Advance Directives Directive Yes / No Effective Date File Name No Information Encounters Encounter Description Practice Location Reason(s) For Visit Diagnoses Date Provider Providers Copied on Encounter [facility], [address] [place], [address], tel:[phone] [place] [address] INTMT No Information 4 NOV Provider. [address] [place], [address]. tel:[phone] OFFICE/OUTPA TIENT VISIT [facility], [address] [place], [address], [place] tel:[phone] [facility] telephone (chief complaint) urine results (chief complaint) Acute cystitis with hematuria 2 Obhany Senaa. [address] [place] [address] [place], [address], [place]. tel:[phone] OFFICE/OUTPA TIENT VISIT, [facility], [address] [place], [address], [place] tel:[phone] [facility] pt here for uti (chief complaint) UTI symptomsAcute cystitis with hematuriaElevat ed systolic blood pressure reading with diagnosis of hypertension 2 Obhany Senaa. [address] [place] [address] [place], [address], [place]. tel:[phone] Family History Family Member Type Diagnosis Age At Onset No Information Payers Payer name Insurance type Covered democrat ID Authoriza tion(s) No Information Social History Type Description Quantity Date Captured Comments Sex Female Smoking Status No Information Chief Complaint And Reason For Visit No Information Reason For Referral Reason For Referral No Information Plan Of Treatment Date Type Action Status Goal Tobacco Use Counseling/Inter vention. Due on due Goal Depression screening. Due on due Goal Td vaccine. Due on due Goal Lipid panel. Due on due Goal Influenza vaccine. Due on due Goal Hypertention Screening. Due on due Goal Fecal Occult Blood Testing. Due on due Goal PAP. Due on due Goal Colonoscopy. Due on due Goal Mammogram. Due on due Goal Zoster vaccine (1st). Due on due Goal Pap/HPV testing. Due on due Goal Mammogram. Due on due Goal Colonoscopy. Due on due Goal Hypertention Screening. Due on due Goal Lipid panel. Due on due Goal PAP. Due on due Goal Fecal Occult Blood Testing. Due on due Goal Td vaccine. Due on due Goal Tobacco Use Counseling/Inter vention. Due on due Goal Depression screening. Due on due Goal Tdap. Due on due Goal Zoster vaccine (1st). Due on due Goal Influenza vaccine. Due on due Goal Pap/HPV testing. Due on due Goal Tdap. Due on due Goal Fecal Occult Blood Testing. Due on due Goal Colonoscopy. Due on due Goal Hemoglobin A1c. Due on due Goal Mammogram. Due on due Goal Td vaccine. Due on due Goal Zoster vaccine (). Due on due Goal Depression screening. Due on due Goal Tobacco Use Counseling/Inter vention. Due on due Goal Pap/HPV testing. Due on due Goal PAP. Due on due Goal Hypertention Screening. Due on due Goal Influenza vaccine. Due on Ap due Goal Lipid panel. Due on 022 due History Of Present Illness Encounter Date Complaint History Of Prese nt Illness urine results Aggravating fact ors include n/a. Relieving factors include n/a. appointment for urine resultsPatient is 60 y.o. (6016) phone appointment today to review her urine [...] pt states she drink a lot of te,avalenzuela maPatient is 60 y.o. (6016) here today for c/o of frequency if urination. she reported she initially had dysuria but she started drinking a lot of different. The pain went away but she has urinary frequency and she urinates adequately. Functional Status Date Functional Assessmen t No Information Instructions Date Instruction Additional Infor [...] hematuria Assessments Type Assessment Date No Information Patient Care Teams Name Effective Dates (start - stop) Status Members No Information
--- OUTSIDE RECORDS SUMMARY | 2025-03-02 14:29 | XMS_ITS | Encounter Summary ---
Author Organization [employer] Address [address] [place] [address] Care Team Providers Care Trouble Tracer Name Role Phone Charlee Galindo MD Primary Care Provider Reason for Visit * Reason Comments Med Refill Encounter Details Date Type Department Care Team ([facility] Contact Info) Description 12/05/2024 Refill [facility] [address] [place], [place] [phone] Meggan Wallace MD [address] [place] [address] Vertigo Social History Tobacco Use Types Packs/Day [...] documented as of this encounter Care Teams Trouble Tracer Relationship Specialty Start Date End Date Charlee Galindo MD [address] [place] [id number] PCP - General Family Medicine 05/09/21 documented as of this encounter
--- NOTE | 2025-03-02 14:43 | MHC.OFFVIS ---
Intake Visit Reasons: OV-RT knee f/u last inj 04/28/24 Intake Note: Jovanna is a 64 year old female who presents today for a follow up of her Right Knee OA. Last injection (80mg) was administered to the right knee on 04/28/24. Patient reports injection provided her with relief, stating her pain returned about 3 months ago. She complains of bilatreal knee pain with her right knee being the worse. Her pain is located around her entire knee and at times travels down her leg. She complains of bilateral ankle swelling. Difficulty with walking. Denies injury. Finds little to no relief with Tylenol, topical patches, elevation and icing. Allergies aspirin (ASA) Allergy (Severe, Verified 03/02/25 14:54) DIFFICULTY BREATHING latex (LATEX) Allergy (Unknown, Verified 03/02/25 14:54) RASH,ITCHING seafood Allergy (Unknown, Verified 03/02/25 14:54) Unknown HPI HPI OV-RT knee f/u last inj 04/28/24: Details: Ms. Garcia is a 64-year-old female who presents to the office today for bilateral knee pain. She had a right knee cortisone injection on 04/28/2024. This gave her great relief. She is looking to see if she can have both knees injected while in the office today. [facility] Medical History Pure hypercholesterolemia GERD (gastroesophageal reflux disease) Dizziness Surgical History History of section H/O left breast biopsy History of lithotripsy History of tubal ligation Family History Father No problems noted. Mother Hypertension CVD (cardiovascular disease) Maternal Grandmother Lung cancer Maternal Grandfather Esophageal cancer Paternal Grandmother Stomach cancer Paternal Grandfather Cancer Family/Other FH: mental illness Social History Household Members: Spouse Housing: House Alcohol intake: never Patient Tobacco Use Status: Current everyday Tobacco user Tobacco use type: Cigarette Cigarettes Per Day: 4 Years Smoked: 25 Current occupational status: employed Current occupation: [employer] Sexual orientation: Straight/Heterosexual Gender identity: Female Review of Systems Const All systems reviewed & are unremarkable except as noted in HPI and below Physical Exam Const General: cooperative and no acute distress Resp Effort & Inspection: normal respiratory effort and able to speak in complete sentences Extrem Other: Bilateral knees: Normal to inspection. No ecchymosis, erythema, or joint effusion. No tenderness to palpation along the lateral joint line. Tenderness to the medial joint line bilaterally. ROM is 0-90 degrees. Unable to perform Honorio's or anterior drawer due to patient guarding and pain. ? Office Procedures AMB Joint Injection/Aspiration Joint Injection/Aspiration Primary Site: right knee Secondary Site: left knee Prep: site was prepped using aseptic technique, ethochloride spray was applied and injection warnings given Injected: 80 mg of, DepoMedrol, with 8 mL of (2% plain lidocaine) and in the joint Approach Used: anterolateral Procedure: The patient tolerated the procedure well, but had some pain with the injection and there was some relief with the local anesthesia Coding 79670 - Bilateral Large Joint Procedure code (CPT) selection complete Assessment & Plan Assessment & Plan (1) Internal derangement of right knee: Code(s): M23.91 - Unspecified internal derangement of right knee Category: Medical (2) Internal derangement of left knee: Code(s): M23.92 - Unspecified internal derangement of left knee Category: Medical Plan The patient was offered a cortisone injection in bilateral knees with 80 mg of DepoMedrol. The patient was explained the risks, benefits, and alternatives to receiving this injection. After receiving consent for the injection, the patient had the procedure done while in the office today. The patient tolerated the procedure well but did have some pain with no complications. Follow-up will be PRN, or sooner if needed Coding Level of Care Code Est Pt Level 3 (58287) Diagnoses Internal derangement of right knee M23.91 Internal derangement of left knee M23.92 CPT Codes Coding - 57746 - Bilateral Large Joint: 82642 - Bilateral Large Joint ([id number])
== END 2025-03-02 15:14 | disposition home or self-care (01) ==
LOC: HO.HOS 14:28
PROVIDERS: PCP Family Medicine; Visit Provider Physician Assistant
DX: M23.91 Unspecified internal derangement of right knee (principal); M23.92 Unspecified internal derangement of left knee
CPT/HCPCS: 20610; 99213

== ENCOUNTER → 2025-03-02 14:27 | Outpatient (BNVA) | payer MEDICARE, SELFPAY | PROVIDERS: PCP Family Medicine; Visit Provider Physician Assistant | DX: M23.92 Unspecified internal derangement of left knee (principal); M25.561 Pain in right knee; M23.91 Unspecified internal derangement of right knee; M25.562 Pain in left knee; M17.11 Unilateral primary osteoarthritis, right knee; Z79.52 Long term (current) use of systemic steroids | CPT/HCPCS: 20610; 99212; J1010; J2003 ==

== ENCOUNTER 2025-04-13 08:37 | Outpatient (REF) | payer MEDICARE, SELFPAY ==
--- OUTSIDE RECORDS SUMMARY | 2023-10-27 09:27 | XMS_ITS | Continuity of Care Document ---
Author Organization [employer] Address [address] [place] [address] Phone Care Team Providers Care Brick Pitcher Name Role Phone NOV RN, Provider Unavailable [...] Diagnoses Date Provider Providers Copied on Encounter [facility], [address] [place], [address], tel:[phone] [place] [address] INTMT No Information 4 NOV Provider. [address] [place], [address]. tel:[phone] OFFICE/OUTPA TIENT VISIT [facility], [address] [place], [address], [place] tel:[phone] [facility] telephone (chief complaint) urine results (chief complaint) Acute cystitis with hematuria 2 Obana Reba. [address] [place] [address] [place], [address], [place]. tel:[phone] OFFICE/OUTPA TIENT VISIT, [facility], [address] [place], [address], [place] tel:[phone] [facility] pt here for uti (chief complaint) UTI symptomsAcute cystitis with hematuriaElevat ed systolic blood pressure reading with diagnosis of hypertension 2 Obana Reba. [address] [place] [address] [place], [address], [place]. tel:[phone] Family History Family Member Type Diagnosis Age At Onset No Information Payers Payer name Insurance type Covered libertarian ID Authoriza tion(s) No Information Social History Type Description Quantity Date Captured Comments Sex Female Smoking Status No Information Chief Complaint And Reason For Visit No Information Reason For Referral Reason For Referral No Information Plan Of Treatment Date Type Action Status Goal Mammogram. Due on due Goal Depression screening. Due on due Goal Lipid panel. Due on due Goal PAP. Due on due Goal Tobacco Use Counseling/Inter vention. Due on due Goal Influenza vaccine. Due on due Goal Zoster vaccine (1st). Due on due Goal Td vaccine. Due on due Goal Pap/HPV testing. Due on due Goal Colonoscopy. Due on due Goal Hypertention Screening. Due on due Goal Fecal Occult Blood Testing. Due on due Goal Pap/HPV testing. Due on due Goal Zoster vaccine (). Due on due Goal Colonoscopy. Due on due Goal Td vaccine. Due on due Goal PAP. Due on due Goal Influenza vaccine. Due on due Goal Hypertention Screening. Due on due Goal Lipid panel. Due on due Goal Depression screening. Due on due Goal Mammogram. Due on due Goal Fecal Occult Blood Testing. Due on due Goal Tdap. Due on due Goal Tobacco Use Counseling/Inter vention. Due on due Goal Tdap. Due on [...]
--- OUTSIDE RECORDS SUMMARY | 2025-04-13 09:07 | XMS_ITS | Encounter Summary ---
Author Organization [employer] Address [address] [facility] [address] [place] [address] Care Team Providers Care Team Assembler Name Role Phone Charlee Galindo MD Primary Care Provider [phone] Reason for Visit * Reason Comments Med Refill Encounter Details Date Type Department Care Team ([facility] Contact Info) Description 12/05/2024 Refill [facility] [address], [place] [phone] Meggan Wallace MD [address] [place] [address] Vertigo Social History Tobacco Use Types Packs/Day [...] documented as of this encounter Care Teams Team Assembler Relationship Specialty Start Date End Date Charlee Galindo MD [address] [place] [id number] PCP - General Family Medicine 05/09/21 documented as of this encounter
--- OUTSIDE RECORDS SUMMARY | 2025-04-13 09:07 | XMS_ITS | Encounter Summary ---
Author Organization [employer] Address [address] [facility] [address] [place] [address] Care Team Providers Care Scale Operator Name Role Phone Charlee Galindo MD Primary Care Provider [phone] Reason for Visit * Reason Onset Date Comments Referral 03/02/2025 Encounter Details Date Type Department Care Team ([facility] st Contact Info) Description 03/02/2025 Telephone C [facility] [address] [place], [place] [phone] Charlee Galindo MD [address] [place] [address] Referral Social History Tobacco Use Types Packs/Day Years Used Date Smoking Tobacco: Every Day Cigarettes Passive Smoke Exposure: Never Smokeless Tobacco: Never Depression Answer Date Recorded Patient Health Questionnaire-9 Score 12 12/29/2024 Patient Health Questionnaire-9 Score 12 12/29/2024 Last PHQ-9: Questionnaire Data Not on file 0 12/29/2024 Housing Stability Answer Date Recorded What is [...] Answer Date Recorded Patient Health Questionnaire-2 Score 4 12/29/2024 Comments No Sex and Gender Information Value Date Recorded Sex Assigned at Female 06/08/2022 10:39 AM EDT Legal Sex Female 10:39 AM EDT Gender Identity Female 06/08/2022 10:39 AM EDT Sexual Orientation Straight 06/08/2022 10 :39 AM EDT documented as of this encounter Miscellaneous Notes * Telephone Encounter - Stephanie Santos - 03/05/2025 11:46 AM EDT VM left for patient to call us back regarding request. [facility] doesn't have a dermatology department, not sure if patient was referring to dermatology here at [facility]. * Telephone Encounter - Hannah Quinones - 03/02/2025 9:37 AM EDT Tc from pt requesting dermatology at [facility]. Pt stated PCP is aware of concerns. Denied triage Contact pt at [phone] documented in this encounter Plan of Treatment Not on file documented as of this encounter Visit Diagnoses Not on filedocumented in this encounter Additional Health Concerns Assessment Noted Time PHQ-9 Depression Total Score: 12 025 10:03 AM EDT documented as of this encounter Care Teams Scale Operator Relationship Specialty Start Date End Date Charlee Galindo MD [address] [place] [address] PCP - General Family Medicine 05/09/21 documented as of this encounter
--- OUTSIDE RECORDS SUMMARY | 2025-04-13 09:07 | XMS_ITS | Clinical Summary ---
Author Organization [employer] Address [address] [facility] 7[address] [place] [address] Care Team Providers Care Instrument Engineer Name Role Phone Charlee Galindo MD Primary Care Provider [phone] Allergies Active Allergy Reactions Criticality Noted Date Comments Aspirin Unknown Low 05/09/2021 Rash Latex Rash Low 05/09/2021 Shellfish-Derived Products Anaphylaxis High 09/18/19 23 Has epipen Medications * This document contains information received from the source organization and may not represent a complete record from that organization. fluticasone furoate (Arnuity Ellipta) 100 MCG/ACT inhaler Inhale 1 puff in the morning. Rinse mouth with water after use to reduce aftertaste and incidence of candidiasis. Do not swallow. 1 each 11 024 Active albuterol 108 (90 Base) MCG/ACT inhaler Inhale 2 puffs every 4 (four) hours if needed for wheezing. 18 g 024 Active EPINEPHrine (Epipen) 0.3 MG/0.3ML injection syringe INJECT CONTENTS OF 1 PEN INTRAMUSCULARLY ONCE NEEDED FOR SEVERE ALLERGIC REACTION 2 each 024 Active Restasis 0.05 % ophthalmic emulsion instill 1 drop into each eye twice daily 025 Active Xiidra 5 % solution instill 1 drop into each eye twice daily 025 Active meclizine (Antivert) 25 MG tabletIndication s:Vertigo Take 1 tablet (25 mg) by mouth if needed in the morning, at noon, and at bedtime for dizziness. 90 tablet 2 025 Active promethazine (Phenergan) 12.5 MG suppositoryIndic ations:Vertigo Insert 1 suppository (12.5 mg) into the rectum if needed in the morning and at bedtime for nausea or vomiting. 60 each 2 025 Active venlafaxine XR (Effexor XR) 150 MG 24 hr capsuleIndicatio ns:Other polyneuropathy TAKE 1 CAPSULE BY MOUTH EVERY MORNING 90 capsule 1 025 Active Nirmatrelvir&Rit onavir 300/100 (Paxlovid, 300/100,) 20 x 150 MG & 10 x 100MG tablet therapy pack Take 1 Dose by mouth 2 times daily. HOLD ROSUVASTATIN while taking this medication 30 each 025 Active gabapentin (Neurontin) 300 MG capsule TAKE 1 CAPSULE BY MOUTH THREE TIMES DAILY 90 capsule 2 025 Active rosuvastatin (Crestor) 40 MG tablet TAKE 1 TABLET BY MOUTH EVERY DAY 90 tablet 025 Active rosuvastatin (Crestor) 40 MG tablet Take 1 tablet by mouth once daily 90 tablet 1 024 2024 Discontinued Active Problems Problem Noted Date Diagnosed Date Brain lesion 12/29/2024 Assessment & Plan (01/02/2025 9:47 AM EDT): Patient reports head injuries detected on tomography, showing very small bifrontal lesions. An MRI of the head with and without contrast has been recommended for further evaluation. Plan: - Proceed with MRI of the head with and without contrast as recommended - Follow up to review MRI results and reassess neurological symptoms Facial mass 12/29/2024 Assessment & Plan (01/02/2025 9:47 AM EDT): Patient reports a hard bump on the forehead, suspected to be an epidermal inclusion cyst. Plan: - Refer to dough panner for evaluation and potential treatment of forehead lesion Dry eyes, bilateral 03/24/2024 Assessment & Plan (03/26/2024 10:00 PM EDT): Pt was referred to Ophthalmology for further evaluation. Chronic pain of right knee 03/24/2024 Assessment & Plan (01/02/2025 9:48 AM EDT): Patient reports right knee pain and requests referral for injection therapy. Patient was previously seen at [facility] for this issue. Plan: - Refer to orthopedist for evaluation and potential knee injection Assessment & Plan (03/26/2024 10:02 PM EDT): Suspicion of meniscus tear. Will send pt for XR and MRI. Pt will also be referred to Orthopedic Surgeon. Hyperlipidemia 12/31/2023 Assessment & Plan (02/08/2024 11:29 AM EDT): The 10-year ASCVD risk score (Shira RAMIREZ, et al., 2019) is: 14.7% Values used to calculate the score: Age: 63 years Sex: Female Is Non- : No Diabetic: No Tobacco smoker: Yes Systolic Blood Pressure: 144 mmHg Is BP treated: No HDL Cholesterol: 37 mg/dL Total Cholesterol: 199 mg/dL Currently on medication, will need to review regimen and compliance Fibromyalgia 12/31/2023 Current moderate episode of major depressive disorder without prior episode 11/30/2023 Overview (11/30/2023): During IBH Consult Jovanna presenting with depressed mood, loss of interests/pleasure , changes in sleep difficulty falling asleep, difficulty staying asleep , and restless, unsatisfying sleep, trouble concentrating, fatigue/loss of energy, hopelessness, decreased libido; for a period of 6-12 mo, for all symptoms in the context of relationship issues. Assessment & Plan (01/15/2025 10:46 AM EDT): Due to this dx, pt qualifies for Paxlovid due to potential worsening of COVID outcomes with comorbid depression. Assessment & Plan (11/30/2023 11:02 AM EDT): PLAN: (check all that apply) New/Additional Services needed Off-site services for Behavioral Health Integration Plan External OP therapy referral Patient Self Plan Patient to utilize skills provided in intervention and Patient to reach out to [facility] team as needed Polyarthralgia 10/29/2023 Assessment & Plan (10/30/2023 3:07 AM EDT): Ordered labs to R/O fibromyalgia. Labs: CBC, CMP, Sed Rate, C-reactive, Rheumatoid Factor, CCP, ROMERO Screen Vertigo 09/18/2022 Assessment & Plan (10/30/2023 3:08 AM EDT): I will refer patient to vestibular therapy for dizziness. Assessment & Plan (12/11/2022 11:06 AM EDT): Patient with persistent symptoms, no improvement or exacerbation. Will send for labs and refer to optometry. Assessment & Plan (09/18/2022 2:26 PM EST): Chronic hx of vertigo, will send to vestibular rehab. Refilled patients prescription for megace, phenergan & meclizine. Chronic back pain 09/18/2022 Chronic GERD 09/18/2022 Chronic arm pain 09/18/2022 Chronic pain of left lower extremity 09/18/2022 Encounters Date Type Department Care Team Description 03/24/2025 Refill [facility] [address] [place] [address] Charlee Galindo MD 03/02/2025 Telephone [facility] [address] [place] [address] Charlee Galindo MD Referral 02/17/2025 Refill [facility] [address] [place] [address] Charlee Galindo MD 02/13/2025 Results Follow-Up [facility] [address] [place] [address] Charlee Galindo MD Mr Brain w/ and w/o Contrast 01/12/2025 3:20 PM EDT Office Visit [facility] [address] [place] [address] Fabby Squires MD COVID-19 (Primary Dx); Hyperlipidemia, unspecified hyperlipidemia type; Current moderate episode of major depressive disorder without prior episode (CMS/[facility]) 01/12/2025 Travel 01/12/2025 Telephone [facility] [address] [place] [address] Charlee Galindo MD Nurse Triage from Last 3 Months Immunizations Immunization Administration Dates Next Due Influenza injectable quadriv alent preservative free 04/24/2022,05/09/2021,07/15/2020,2018,05/24/2018 Pfizer Covid-19 Vaccine 12+ 12/07/2020, Pneumococcal Conjugate PCV 20 03/24/2024 Tdap 11/23/2018,03/09/2014 Social History Tobacco Use Types Packs/Day Years Used Date Smoking Tobacco: Every Day Cigarettes Passive Smoke Exposure: Never Smokeless Tobacco: Never Tobacco Cessation:Ready to Q uit: Not Asked; Counseling Given: Not Answered Depression Answer Date Recorded Patient Health Questionnaire-9 [...] Orientation Straight 06/08/2022 10 :39 AM EDT Last Filed Vital Signs Vital Sign Reading Time Taken Comments Blood Pressure 107/81 01/12/2025 3:02 PM EDT Pulse 77 01/12/2025 3:02 PM EDT Temperature 36.7 C (98 F) 01/12/2025 3:02 PM EDT Respiratory Rate 16 01/12/2025 3:02 PM EDT Oxygen Saturation 100% 01/12/2025 3:02 PM EDT Inhaled Oxygen Concentration - - Weight 78.9 kg (174 lb) 01/12/2025 3:02 PM EDT Height 165.1 cm (5' 5 ) 01/12/2025 3:02 PM EDT Body Mass Index 28.96 01/12/2025 3:02 PM EDT Plan of Treatment Health Maintenance Due Date Last Done Comments CT Colonography 1960 Colonoscopy 1960 FIT 1960 Sigmoidoscopy 1960 Alcohol/Substance Use Screening 1970 Hepatitis C Screening 1976 Zoster Vaccines (1 of 2) 2008 FOBT 09/30/2023 09/30/2022 Mammogram 06/26/2024 06/26/2022, 06/20/2021 SDOH Screening 10/28/2024 10/29/2023 COVID-19 Vaccine ( season) 2025 06/01/2024, 05/27/2023, 12/07/2020, Additional history exists Influenza Vaccine (#1) 2025 , 05/09/2021, 07/15/2020, Additional history exists Depression Monitoring 07/01/2025 12/29/2024, 025 Colorectal Cancer Screening 09/30/2025 FIT DNA/Cologuard 09/30/2025 09/30/2022 Tobacco Screening 01/12/2026 01/12/2025 DTaP/Tdap/Td Vaccines (3 - Td or Tdap) 11/23/2028 11/23/2018, 03/09/2014 Lipid Panel 12/23/2028 12/24/2023, 07/0 02/2023, 05/23/2021 RSV Patients and Patients Aged 60 years or older (1 - 1-dose 75+ series) 2033 Cervical Cancer Screening Discontinued HPV/Cotest Discontinued 04/24/2022 Pap Smear Discontinued 04/24/2022 Pneumococcal Vaccine: 50+ Years Completed 03/24/2024 HIB Vaccines Aged Out No longer eligi ble based on patient's age to complete this topic HPV Vaccines Aged Out No longer eligi ble based on patient's age to complete this topic Hepatitis A Vaccines Aged Out No long er eligible based on patient's age to complete this topic Hepatitis B Vaccines Aged Out No long er eligible based on patient's age to complete this topic IPV Vaccines Aged Out No longer eligi ble based on patient's age to complete this topic Meningococcal B Vaccine Aged Out No l onger eligible based on patient's age to complete this topic Meningococcal Vaccine Aged Out No danyell santiago eligible based on patient's age to complete this topic RSV under 20 months Aged Out No longe r eligible based on patient's age to complete this topic Rotavirus Vaccines Aged Out No longer eligible based on patient's age to complete this topic Procedures Procedure Name Priority Date/Time Associated Diagnosis Comments MR BRAIN W AND WO CONTRAST Routine 02/10/2025 12:30 PM EDT Brain lesion POCT COVID-19 AG RAMOS ID NOW Routine 01/12/2025 3:08 PM EDT COVID-19 LIPID PANEL, STANDARD Routine 12/24/2023 8:54 AM EDT Encounter for health-related screening LAB COLOGUARD COLON CANCER SCREEN Routine 09/30/2022 MAMMOGRAM GENERIC Routine 06/26/2022 11: 15 AM EST THINPREP IMAGING PAP AND HPV MRNA E6/E7 WITH REFLEX TO HPV 16,18/45 Routine 04/24/2022 12:00 AM EDT from Last 3 Months or Most Recently Relevant to Health Maintenance Results * Mr Brain w/ and w/o Contrast (02/10/2025 12:30 PM EDT) Anatomical Region Laterality Modality Brain Magnetic Resonan ce 02/10/2025 12:3 0 PM EDT Narrative 02/12/2025 9:28 AM EDT [address] [address] Magnetic Resonance Report Signed Patient: Jovanna Garcia MR#: [id number] : 1960 Acct:[id number] Age/Sex: 64 / F ADM Date: 02/10/25 Loc: HO.MRI Attending Dr: Charlee Galindo MD Ordering Physician: Chalree Galindo MD Date of Service: 02/10/25 Procedure(s): MR head/brain wo/w con Accession Number(s): [id number] cc: Charlee Galindo MD EXAMINATION: MR BRAIN WITHOUT AND WITH CONTRAST CLINICAL INFORMATION: Bifrontal small white matter lesions seen on CT. Mild headaches and dizziness. COMPARISON: CT head 11/08/2024. No prior MRI. TECHNIQUE: Multiplanar, multisequence MRI of the brain was obtained before and after the intravenous administration of 7.5 mL Gadavist. Examination performed on a 1.5 Jaye Siemens high-field unit. FINDINGS: There is no diffusion restriction. There is no intracranial hemorrhage, acute infarction, mass effect, or edema. Ventricles, sulci, and cisterns are normal in size and configuration for patient age. No shift of midline. No abnormal hemosiderin deposition is identified. There are a numerous scattered punctate and minimally confluent foci of white matter T2 hyperintensity in the periventricular, subcortical, and hemispheric deep white matter. Foci are seen in the central and posterior francisco as well. There are a few T1 hypointense foci. No definite callosal lesions. There are several pericallosal and callosal marginal lesions, raising the possibility of demyelinating disease. In addition, there is diffuse hyperintensity at the callosal septal interface, a finding which can be associated with demyelinating disease. The overall distribution and morphology is nonspecific, and could be related to small vessel ischemic changes and/or inflammatory demyelination. There is no abnormal intra or extra-axial enhancement after the administration of contrast. Midline structures appear normally formed. No callosal atrophy. The pituitary gland appears normal. Posterior fossa structures appear normal. Cerebellar tonsils are minimally low-lying, without meeting criteria for Chiari I malformation. Major flow voids are preserved within the skull base. The globes and orbital contents demonstrate no abnormalities. Optic nerves appear normal in signal. Paranasal sinuses demonstrate minimal mucosal thickening. No significant sinus disease. Nasal septum is midline without spur. The mastoids and tympanic cavities are normally aerated. Extracranial soft tissues demonstrate no abnormalities. No suspicious bone marrow changes are evident. Atlantoaxial joint is normal. MR/MR head/brain wo/w con IMPRESSION: 1. No evidence of intracranial hemorrhage, acute infarction, mass effect, or edema. 2. Numerous scattered punctate and minimally confluent T2 hyperintense white matter foci as described. There are a few T1 hypointense lesions. There are no enhancing lesions and there is no diffusion restriction. Differential includes inflammatory demyelination versus mild to moderate small vessel ischemic changes. 3. No abnormal intra or extra-axial enhancement after contrast administration. Electronically signed by: Og Sandoval MD 02/12/2025 09:25 AM EDT Dictated By: Og Sandoval MD Signed By: <Electronically signed by Og Sandoval MD in OV> 02/12/25924 DD/ 1230 TD/TT: 02/10/25 1325 Icer Machine Operator: Procedure Note Donotuseinterpreter, Image - 02/12/2025 [place] [address] Magnetic Resonance Report Signed Patient: Donn Garcia#: [id number] : 9Acct:[id number] Age/Sex: 64 / FADM Date: 02/10/25 Loc: HO.MRI Attending Dr: Charlee Galindo MD Ordering Physician: Charlee Galindo MD Date of Service: 02/10/25 Procedure(s): MR head/brain wo/w con Accession Number(s): [id number] cc: Charlee Galindo MD EXAMINATION: MR BRAIN WITHOUT AND WITH CONTRAST CLINICAL INFORMATION: Bifrontal small white matter lesions seen on CT. Mild headaches and dizziness. COMPARISON: CT head 11/08/2024. No prior MRI. TECHNIQUE: Multiplanar, multisequence MRI of the brain was obtained before and after the intravenous administration of 7.5 mL Gadavist. Examination performed on a 1.5 Jaye Siemens high-field unit. FINDINGS: There is no diffusion restriction. There is no intracranial hemorrhage, acute infarction, mass effect, or edema. Ventricles, sulci, and cisterns are normal in size and configuration for patient age. No shift of midline. No abnormal hemosiderin deposition is identified. There are a numerous scattered punctate and minimally confluent foci of white matter T2 hyperintensity in the periventricular, subcortical, and hemispheric deep white matter. Foci are seen in the central and posterior francisco as well. There are a few T1 hypointense foci. No definite callosal lesions. There are several pericallosal and callosal marginal lesions, raising the possibility of demyelinating disease. In addition, there is diffuse hyperintensity at the callosal septal interface, a finding which can be associated with demyelinating disease. The overall distribution and morphology is nonspecific, and could be related to small vessel ischemic changes and/or inflammatory demyelination. There is no abnormal intra or extra-axial enhancement after the administration of contrast. Midline structures appear normally formed. No callosal atrophy. The pituitary gland appears normal. Posterior fossa structures appear normal. Cerebellar tonsils are minimally low-lying, without meeting criteria for Chiari I malformation. Major flow voids are preserved within the skull base. The globes and orbital contents demonstrate no abnormalities. Optic nerves appear normal in signal. Paranasal sinuses demonstrate minimal mucosal thickening. No significant sinus disease. Nasal septum is midline without spur. The mastoids and tympanic cavities are normally aerated. Extracranial soft tissues demonstrate no abnormalities. No suspicious bone marrow changes are evident. Atlantoaxial joint is normal. MR/MR head/brain wo/w con IMPRESSION: 1. No evidence of intracranial hemorrhage, acute infarction, mass effect, or edema. 2. Numerous scattered punctate and minimally confluent T2 hyperintense white matter foci as described. There are a few T1 hypointense lesions. There are no enhancing lesions and there is no diffusion restriction. Differential includes inflammatory demyelination versus mild to moderate small vessel ischemic changes. 3. No abnormal intra or extra-axial enhancement after contrast administration. Electronically signed by: Og Sandoval MD 02/12/2025 09:25 AM EDT Dictated By: Og Sandoval MD Signed By: <Electronically signed by Og Sandoval MD in OV> 02/12/25 0925 DD/ 1230 TD/TT: 02/10/25 1325 Icer Machine Operator: Charlee Galindo MD IMG MRI PROCEDURES Final Resu lt * (ABNORMAL) POCT COVID-19 Ag Ramos ID NOW (01/12/2025 3:08 PM EDT) Coronavirus Antigen PCR Positive (A) Negative, Indeterminate, None Detected, Invalid, Specimen unsatisfactory for evaluation, Weakly Positive, 2+ Swab 01/12/2025 3:08 PM EDT Fabby Squires MD POINT OF CARE TEST ENTER/EDIT ORDERABLES Final Result * (ABNORMAL) Lipid Panel, Standard (12/24/2023 8:54 AM EDT) Triglycerides 216(H) <150 mg/dL [facility] Comment:Desirable Triglyceri de: less than 150 mg/dLBorderline High Triglyceride 150-199 mg/dLHigh Triglyceride: 200-499 mg/dLVery High Triglyceride: greater than or equal to 5OO mg/dL Cholesterol 199 <200 mg/dL [facility] Comment:Desirable Cholestero l: less than 200 mg/dLBorderline High Cholesterol: 200-239 mg/dLHigh Cholesterol: greater than 239 mg/dL LDL Cholesterol Calculated 119(H) <100 mg/dL [facility] Comment:Desirable LDL: less than 100 mg/dLNear Optimal/Above Optimal LDL: 110- 129 mg/dLBorderline High LDL: 130-159 mg/dLHigh LDL: 160-189 mg/dLVery High LDL: greater than or equal to 190 mg/dL HDL Cholesterol 37(L) >40 mg/dL [facility] Comment:Desirable HDL: great er than 40 mg/dL Note: This HDL assay may give artificially low results in patients with liver disease. Blood Venous blood specimen / Unknown 12/24/2023 8:54 AM EDT 12/24/2023 8:54 AM EDT Charlee Galindo MD LAB BLOOD ORDERABLES Final Re sult [facility] [address] [place] [address] [phone] * Cologuard?? colon cancer screening (09/30/2022) Cologuard Cancer Screen Negative Stool 09/30/[address] [facility] Charlee Galindo MD LAB MOLECULAR DIAGNOSTICS ORD ERABLES Final Result * Mammography Report 1 (06/26/2022 11:15 AM EST) Anatomical Region Laterality Modality Breast Bilateral Mammography 06/26/2022 11:1 5 AM EST Narrative 06/29/2022 10:04 AM EST Refer to the Notes tab for result details [facility] Procedure: Mammography Report 1 Procedure Note ProviderMukul MD - 11/01/2022 Refer to the Notes tab for result details [facility] Procedure: Mammography Report [address] [facility] Charlee Galindo MD IMG BI PROCEDURES Final Resul t * THINPREP TIS PAP AND HPV mRNA E6/E7 WITH REFLEX TO HPV 16,18/45 (04/24/2022 12:00 AM EDT) Clinical Information: None given [facility] COMMENT SEE COMMENT [facility] Comment: EXPLANATORY NOTE: The Pap is a screening test for cervical cancer. It is not a diagnostic test and is subject to false negative and false positive results. It is most reliable when a satisfactory sample, regularly obtained, is submitted with relevant clinical findings and history, and when the Pap result is evaluated along with historic and current clinical information. COMMENT: This Pap test has been evaluated with computer assisted technology. [facility] Cytotechnologis t: SEE COMMENT [facility] Comment: GSG, CT(ASCP) CT screening location: [place] [address] HPV nRNA E6/E7 Not Detected Not Detected [facility] Comment: Methodology: [employer] Assistant-Mediated Amplification This assay detects E6/E7 viral messenger RNA (mRNA) from 14 high-risk HPV types (16,18,31,33,35,39,45,51,52,56,58,59,66,68). Cervical sources are required for HPV testing. If a vaginal source from a patient who has had a total hysterectomy with removal of cervix was submitted, please contact the testing laboratory for alternative testing options. For additional information, please refer to http://education.FirstJob/faq/[email or web address] (This link if provided for information/ educational purposes only.) Interpretation/ Result: Negative for intraepithelial lesion or malignancy. [facility] LMP: NONE [facility] Prev. BX: NONE [facility]IV[facility] Prev. PAP: NONE [facility]IV[facility] SOURCE: None given [facility] Statement Of Adequacy: SEE COMMENT [facility] Comment: Satisfactory for evaluation. Endocervical/transformation zone component present. 04/24/2022 us Charlee Galindo MD LAB PATHOLOGY ORDERABLES Angelica garcia Result [facility] [address] from Last 3 Months or Most Recently Relevant to Health Maintenance Insurance MEDICARE MEDICARE [place] [employer] Care Teams Instrument Engineer Relationship Specialty Start Date End Date Charlee Galindo MD [address] [place] [phone] PCP - General Family Medicine 05/09/21
--- OUTSIDE RECORDS SUMMARY | 2025-04-13 09:07 | XMS_ITS | Encounter Summary ---
Author Organization [employer] Address [address] [facility] [address] [place] [address] Care Team Providers Care Steam Oven Operator Name Role Phone Charlee Galindo MD Primary Care Provider [phone] Reason for Visit * Reason Comments Med Refill Encounter Details Date Type Department Care Team ([facility] Contact Info) Description 04/09/2023 Refill [facility] [address] [place], [place] [phone] Charlee Galindo MD [address] [place] [address] Social History Tobacco Use Types Packs/Day Years Used Date Smoking Tobacco: Every Day Cigarettes Passive Smoke Exposure: Never Smokeless Tobacco: Never Depression Answer Date Recorded Patient Health Questionnaire-9 Score 3 09/18/2022 Depression Answer Date Recorded Patient Health Questionnaire-2 Score 0 09/18/2022 Comments Unknown Sex and Gender Information Value Date Recorded [...] Assessment Noted Time PHQ-9 Depression Total Score: 3 09/18/19 23 8:57 AM EST documented as of this encounter Care Teams Steam Oven Operator Relationship Specialty Start Date End Date Charlee Galindo MD [address] [place] [id number] PCP - General Family Medicine 05/09/21 documented as of this encounter
[2025-04-13 09:46] LABS: Cholesterol 135 mg/dL (<200); HDL Cholesterol 36 mg/dL (>40); Triglycerides 212 mg/dL (<150)
[2025-04-13 10:05] LABS: ~HepC Num1 0.08 S/CO (0.00-0.79); ~Hepatitis C Antibody Nonreactive (Nonreactive)
== END 2025-04-13 08:38 | disposition home or self-care (01) ==
LOC: HO.LAB 08:37
PROVIDERS: PCP Family Medicine; Visit Provider Family Medicine
DX: E78.5 Hyperlipidemia, unspecified (principal); Z13.9 Encounter for screening, unspecified; Z11.59 Encounter for screening for other viral diseases
CPT/HCPCS: 36415; 80061; 86803

== ENCOUNTER 2025-06-29 07:39 | Outpatient (REF) | payer MEDICARE, SELFPAY ==
--- OUTSIDE RECORDS SUMMARY | 2023-10-27 08:27 | XMS_ITS | Continuity of Care Document ---
Author Organization [employer] Address [address] [place] [address] Phone Care Team Providers Care Bleach Boiler Puller Name Role Phone NOV RN, Provider Unavailable Unavailable Allergies, Adverse Reactions, Alerts Substance Reaction Status Criticality aspirin Active No Information Medications Medication Instructions Dosage Dose Quantity Effective Dates (start - stop) Status Indication Fill Status Comments cephalexin 500 mg capsule take 1 capsule by oral route every 6 hours 10 MG 1 tablet 2 - Active clopidogrel 75 mg tablet take 1 tablet by oral route every day 10 MG 1 tablet - Active enalapril maleate 10 mg tablet take 1 tablet by oral route every day 10 MG 1 tablet - Active omeprazole 20 mg tablet,delay ed release 10 MG 1 tablet - Active Advance Directives Directive Yes / No Effective Date File Name No Information Encounters Encounter Description Practice Location Reason(s) For Visit Diagnoses Date Provider Encounter Disposition [facility], [address] [place], [address], tel:[phone] [place] [address] INTMT No Information 4 JUN Provider. [address] [place] [address], [address]. tel:[phone] [facility], [address] [place], [address], tel:[phone] [facility] telephone (chief complaint) urine results (chief complaint) Acute cystitis with hematuria 2 Obhany Britton. [address] [place], [address], [place]. tel:[phone] [facility], [address] [place], [address], [place] tel:[phone] [facility] pt here for uti (chief complaint) UTI symptomsAcute cystitis with hematuriaElev ated systolic blood pressure reading with diagnosis of hypertension 2 Crispin Britton. [address] [place], [address], [place]. tel:[phone] Family History Family Member Type Diagnosis Age At Onset No Information Payers Payer name Insurance type Identifiers Authorization(s) Com ments No Information Social History Type Description Quantity Date Captured Comments Sex Female Smoking Status No Information Current Gender Female (finding) Chief Complaint And Reason For Visit No Information Plan Of Treatment Date Type Action Status Goal Pap/HPV testing. Due on due Goal Zoster vaccine (). Due on due Goal Mammogram. Due on due Goal Colonoscopy. Due on 024 due Goal PAP. Due on due Goal Fecal Occult Blood Testing. Due on due Goal Hypertention Screening. Due on due Goal Influenza vaccine. Due on due Goal Lipid panel. Due on 024 due Goal Td vaccine. Due on due Goal Depression screening. Due on due Goal Tobacco Use Counseling/Inter vention. Due on due Goal Pap/HPV testing. Due on due Goal Influenza vaccine. Due on due Goal Zoster vaccine (). Due on due Goal Tdap. Due on due Goal Depression screening. Due on due Goal Tobacco Use Counseling/Inter vention. Due on due Goal Td vaccine. Due on due Goal Fecal Occult Blood Testing. Due on due Goal PAP. Due on due Goal Lipid panel. Due on due Goal Hypertention Screening. Due on due Goal Colonoscopy. Due on due Goal Mammogram. Due on due Goal Lipid panel. Due on due Goal Influenza vaccine. Due on due Goal Hypertention Screening. Due on due Goal PAP. Due on due Goal Pap/HPV testing. Due on due Goal Tobacco Use Counseling/Inter vention. Due on due Goal Depression screening. Due on due Goal Zoster vaccine (). Due on due Goal Td vaccine. Due on due Goal Mammogram. Due on due Goal Hemoglobin A1c. Due on due Goal Colonoscopy. Due on due Goal Fecal Occult Blood Testing. Due on due Goal Tdap. Due on due History Of Present Illness Encounter Date Complaint History Of Prese nt Illness urine results Aggravating fact ors include n/a. Relieving factors include n/a. appointment for urine resultsPatient is 60 y.o. (9399) phone appointment today to review her urine test results. She concern about her taking anti-coagulant and the persistent blood in her urine. telephone Aggravating fact ors include n/a. Relieving factors include n/a. Patient evaluated by telephone/video in place of face to face. Clinician determined this service was medically necessary and clinically appropriate to be delivered remotely. Provider reviewed confidentiality with patient and patient fully understands and gave verbal consent to provider for telehealth services. Patient is appropriate for Telehealth services. pt here for uti Aggravating fact ors include n/a. Relieving factors include n/a. pt present because of UTI symptoms, per pt states she don't have any burning sensation , she is going good to the restrooms but a lot of times, pt states she drink a lot of te,bj maPatient is 60 y.o. (3192) here today for c/o of frequency if urination. she reported she initially had dysuria but she started drinking a lot of different. The pain went away but she has urinary frequency and she urinates adequately. Functional Status Date Description Comments No Information Instructions Date Instruction Additional Infor amanda Urinalysis-WBC sara ase-plus+Occult blood- trace.I advised continue and finish her antibiotic.Need to make appointment with FP-PCP to evaluate further her microscopic hematuria and her elevated BP despite of her blood pressure medication. Related to Acute cystitis with hematuria Patient needs to see her FP- primary to review her BP.ER precautions. Related to Elevated systolic blood pressure reading with diagnosis of hypertension Cephalexin 500 mg PO Q 6 hours x 7 days. Hydrate. Call back if symptoms persist/ worsens after 2-3 days taking the antibiotic. Go to ER if the clinic is close.Follow-up in one week. Related to Acute cystitis with hematuria Assessments Type Assessment Date No Information
--- NOTE | ~2025-06-29 | MM_ITS ---
EXAMINATION: MM SCREENING DIGITAL BREAST TOMOSYNTHESIS, BILATERAL CLINICAL INFORMATION: Screening. Asymptomatic. COMPARISON: Mammography: Comparison is made with available priors TECHNIQUE: Digital breast mammography with tomosynthesis is performed in both the craniocaudal and mediolateral oblique views along with computer-aided detection (CAD). FINDINGS: The breasts are heterogeneously dense, which may obscure small masses. There are no significant masses, abnormal calcifications, or other abnormalities. MM/MM tomosynthesis screening BI IMPRESSION: No mammographic evidence of malignancy. ASSESSMENT: BI-RADS Category 1: Negative RECOMMENDATION: Routine annual mammography screening. 1 year F/U This examination should not preclude the clinical evaluation of a suspicious palpable abnormality. This patient's information was entered into a reminder system with a target due date for their next mammogram. Electronically signed by: Emy Marie DO 07/02/2025 05:05 PM MOODY
--- OUTSIDE RECORDS SUMMARY | 2025-06-29 07:41 | XMS_ITS | Encounter Summary ---
Author Organization [email or web address] Address [address] [facility] 7t [place] [address] Care Team Providers Care Sulphate Tester Name Role Phone Charlee Galindo MD Primary Care Provider [phone] Reason for Visit * Reason Onset Date Comments Referral 03/02/2025 Encounter Details Date Type Department Care Team ([facility] st Contact Info) Description 03/02/2025 Telephone C [facility] [address] [place], [place] [phone] Charlee Galindo MD [address] [place] [address] Referral Social History Tobacco Use Types Packs/Day [...] patient to call us back regarding request. [facility] doesn't have a dermatology department, not sure if patient was referring to dermatology here at [facility]. * Telephone Encounter - Hannah Quinones - 03/02/2025 9:37 AM EDT Tc from pt requesting dermatology at [facility]. Pt stated PCP is aware of concerns. Denied triage Contact pt at [phone] documented in this encounter Plan of Treatment Not on file documented as of this encounter Visit Diagnoses Not on filedocumented in this encounter Additional Health Concerns Assessment Noted Time PHQ-9 Depression Total Score: 12 025 10:03 AM EDT documented as of this encounter Care Teams Sulphate Tester Relationship Specialty Start Date End Date Charlee Galindo MD [address] [place] [address] PCP - General Family Medicine 05/09/21 documented as of this encounter
--- OUTSIDE RECORDS SUMMARY | 2025-06-29 07:41 | XMS_ITS | Encounter Summary ---
Author Organization [employer] Address [address] [facility] 7t [place] [address] Care Team Providers Care Manpower Development Manager Name Role Phone Charlee Galindo MD Primary Care Provider [phone] Reason for Visit * Reason Comments Med Refill Encounter Details Date Type Department Care Team ([facility] Contact Info) Description 12/05/2024 Refill [facility] [address] [place], [place] [phone] Meggna Wallace MD [address] [place] [address] Vertigo Social History Tobacco Use Types Packs/Day [...] documented as of this encounter Care Teams Manpower Development Manager Relationship Specialty Start Date End Date Charlee Galindo MD [address] [place] [phone] PCP - General Family Medicine 05/09/21 documented as of this encounter
--- OUTSIDE RECORDS SUMMARY | 2025-06-29 07:42 | XMS_ITS | Clinical Summary ---
Author Organization [employer] Address [address] [facility] 7t [place] [address] Care Team Providers Care Public Accountant Name Role Phone Charlee Galindo MD Primary Care Provider [phone] Allergies Active Allergy Reactions Criticality Noted Date Comments Aspirin Unknown Low 05/09/2021 Rash Latex Rash Low 05/09/2021 Shellfish Protein-Containing Drug Products Anaphylaxis High 09/18/2022 Has epipen Medications * This document contains information received from the source organization and may not represent a complete record from that organization. EPINEPHrine (Epipen) 0.3 MG/0.3ML injection syringe INJECT [...] EVERY MORNING 90 capsule 1 025 Active gabapentin (Neurontin) 300 MG capsule TAKE 1 CAPSULE BY MOUTH THREE TIMES DAILY 90 capsule 2 07/14/2 025 Active rosuvastatin (Crestor) 40 MG tablet TAKE 1 TABLET BY MOUTH EVERY DAY 90 tablet Active albuterol 108 (90 Base) MCG/ACT inhaler INHALE 2 PUFFS BY MOUTH EVERY 4 HOURS NEEDED FOR WHEEZING 18 g Active fluticasone (Flonase) 50 MCG/ACT nasal spray Administer 1-2 sprays into each nostril Once per day. Shake gently. Before first use, prime pump. After use, clean tip and replace cap. 16 g 2 025 2025 Active fluticasone furoate (Arnuity Ellipta) 200 MCG/ACT inhaler Inhale 1 puff Once per day. Rinse mouth with water after use to reduce aftertaste and incidence of candidiasis. Do not swallow. 1 each 11 025 2025 Active montelukast (Singulair) 10 MG tablet Take 1 tablet (10 mg) by mouth Once per day. 30 tablet 2 2025 Active fexofenadine (Veronica) 180 MG tablet Take 1 tablet (180 mg) by mouth if needed each day (Allergies). 90 tablet 1 2025 Active fluticasone furoate (Arnuity Ellipta) 100 MCG/ACT inhaler Inhale 1 puff in the morning. Rinse mouth with water after use to reduce aftertaste and incidence of candidiasis. Do not swallow. 1 each 024 2024 Discontinued( Ineffective) Xiidra 5 % solution instill 1 drop into each eye twice daily 025 2024 Discontinued Nirmatrelvir&Rit onavir 300/100 (Paxlovid, 300/100,) 20 x 150 MG & 10 x 100MG tablet therapy pack Take 1 Dose by mouth 2 times daily. HOLD ROSUVASTATIN while taking this medication 30 each 025 2024 Discontinued predniSONE (Deltasone) 20 MG tabletIndication s:Moderate persistent asthma with acute exacerbation Take 2 tablets (40 mg) by mouth Once per day for 5 days. 10 tablet 025 2024 Active Problems Problem Noted Date Diagnosed Date Obstructive sleep apnea syndrome 06/15/2025 Overview (06/15/2025): CPAP Tinnitus 06/15/2025 Brain lesion 12/29/2024 Assessment & Plan (01/02/2025 [...] epidermal inclusion cyst. Plan: - Refer to kitchen steward for evaluation and potential treatment of forehead lesion Dry eyes, bilateral 03/24/2024 Assessment & Plan (03/26/2024 10:00 PM EDT): Pt was referred to Ophthalmology for further evaluation. Chronic pain of right knee 03/24/2024 Assessment & Plan (01/02/2025 9:48 AM EDT): Patient reports right knee pain and requests referral for injection therapy. Patient was previously seen at [facility] for this issue. Plan: - Refer to [...] of major depressive disorder without prior episode ([facility]/HCC) 11/30/2023 Overview (11/30/2023): During [facility] Consult Jovanna [...] intervention and Patient to reach out to [facility] team as needed Polyarthralgia 10/29/2023 Assessment & [...] Encounters Date Type Department Care Team Description 06/15/2025 8:45 AM EST Office Visit [facility] [address] [place] [address] Charlee Galindo MD Moderate persistent asthma with acute exacerbation (Primary Dx); Obstructive sleep apnea syndrome; Tinnitus, unspecified laterality; Vertigo; Hyperlipidemia, unspecified hyperlipidemia type 06/15/2025 Travel 06/14/2025 Travel 06/14/2025 Telephone [facility] [address] [place] [address] Charlee Galindo MD Chart Prep 05/25/2025 Refill [facility] [address] [place] [address] Charlee Galindo MD from Last 3 Months Immunizations Immunization Administration [...] housing situation today? I have irvin schafer 06/15/[address] you li ve. Do you have problems with any of the following? None of the above 06/15/2025 Food Insecurity Answer Date Recorded Within the past 12 months, y ou worried that your food would run out before you got money to buy more: Never True 06/15/2025 Within the past 12 months,th e food you bought just didn't last and you didn't have enough money to get more: Never True 02/2025 Transportation Answer Date Recorded In the past 12 months, has l ack of transportation kept you from medical appts, meetings, work or from getting things needed for daily living? No 06/15/2025 Utilities Answer Date Recorded In the past 12 months, has t he electric, gas, oil or water company threatened to shut off services in your home? No 06/15/2025 Depression Answer Date Recorded Patient Health Questionnaire-2 Score 4 12/29/2024 Internet Access Answer Date Recorded Internet Access Q1 Yes 06/15/2025 Internet Access Q2 Not on file 06/15/2025 Comments No Sex and Gender Information Value Date Recorded Sex Assigned at Female 06/08/2022 10:39 AM EDT Legal Sex Female 10:39 AM EDT Gender Identity Female 06/08/2022 10:39 AM EDT Sexual Orientation Straight 06/08/2022 10 :39 AM EDT Last Filed Vital Signs Vital Sign Reading Time Taken Comments Blood Pressure 126/60 06/15/2025 8:57 AM EST Pulse 82 06/15/2025 8:57 AM EST Temperature 36.6 C (97.8 F) 06/15/2025 8:57 AM EST Respiratory Rate 20 06/15/2025 8:57 AM EST Oxygen Saturation 98% 06/15/2025 8:57 AM EST Inhaled Oxygen Concentration - - Weight 79.8 kg (176 lb) 06/15/2025 8:57 AM EST Height 165.1 cm (5' 5 ) 06/15/2025 8:57 AM EST Body Mass Index 29.29 06/15/2025 8:57 AM EST Plan of Treatment Health Maintenance Due Date Last Done Comments CT Colonography 1958 Colonoscopy 1958 FIT 1958 Sigmoidoscopy 1960 Alcohol/Substance Use Screening 1970 RSV Patients and Patients Aged 60 years or older (1 - Risk 50-74 years 1-dose series) 2008 Zoster Vaccines (1 of 2) 2008 FOBT 09/30/2023 09/30/2022 Mammogram 06/26/2024 06/26/2022, 06/20/2021 COVID-19 Vaccine ( season) 2025 06/01/2024, 05/27/2023, 12/07/2020, Additional history exists Influenza Vaccine (#1) 2025 , 05/09/2021, 07/15/2020, Additional history exists Depression Monitoring 07/01/2025 12/29/2024, 025 Colorectal Cancer Screening 09/30/2025 FIT DNA/Cologuard 09/30/2025 09/30/2022 SDOH Screening 06/15/2026 06/15/2025 Tobacco Screening 06/15/2026 06/15/2025 DTaP/Tdap/Td Vaccines (3 - Td or Tdap) 11/23/2028 11/23/2018, 03/09/2014 Lipid Panel 04/13/2030 04/13/2025, 12/07, 02/12/2023, Additional history exists Cervical Cancer Screening Discontinued HPV/Cotest Discontinued 04/24/2022 Pap Smear Discontinued 04/24/2022 Pneumococcal Vaccine: 50+ Years Completed 03/24/2024 Hepatitis C Screening Completed 04/13/2025 HIB Vaccines Aged Out No longer eligi [...] Procedure Name Priority Date/Time Associated Diagnosis Comments HEPATITIS C AB W/REFL TO HCV RNA, QN, PCR Routine 04/13/2025 8:50 AM EDT Encounter for health-related screening LIPID PANEL, STANDARD Routine 04/13/2025 8:50 AM EDT Hyperlipidemia, unspecified hyperlipidemia type LAB COLOGUARD COLON CANCER SCREEN Routine 09/30/2022 MAMMOGRAM GENERIC Routine 06/26/2022 11: 15 AM EST THINPREP IMAGING PAP AND HPV MRNA E6/E7 WITH REFLEX TO HPV 16,18/45 Routine 04/24/2022 12:00 AM EDT from Last 3 Months or Most Recently Relevant to Health Maintenance Results * Hepatitis C Antibody with Reflex to HCV, RNA, Quantitative, Real-Time PCR (04/13/2025 8:50 AM EDT) Hepatitis C Antibody Nonreactive Nonreactive [facility] Comment:Antibodies to HCV no t detected; does not exclude early acuteHCV infection. Blood Venous blood specimen / Unknown 04/13/2025 8:50 AM EDT 04/13/2025 8:50 AM EDT us Charlee Galindo MD LAB BLOOD ORDERABLES Final Re sult [facility] [address] [place] [phone] * (ABNORMAL) Lipid Panel, Standard (04/13/2025 8:50 AM EDT) Triglycerides 212(H) <150 mg/dL [facility] Comment:Desirable Triglyceri de: less than 150 mg/dLBorderline High Triglyceride 150-199 mg/dLHigh Triglyceride: 200-499 mg/dLVery High Triglyceride: greater than or equal to 5OO mg/dL Cholesterol 135 <200 mg/dL [facility] Comment:Desirable Cholestero l: less than 200 mg/dLBorderline High Cholesterol: 200-239 mg/dLHigh Cholesterol: greater than 239 mg/dL LDL Cholesterol Calculated 57 <100 mg/dL [facility] Comment:Desirable LDL: less than 100 mg/dLNear Optimal/Above Optimal LDL: 110- 129 mg/dLBorderline High LDL: 130-159 mg/dLHigh LDL: 160-189 mg/dLVery High LDL: greater than or equal to 190 mg/dL HDL Cholesterol 36(L) >40 mg/dL [facility] Comment:Desirable HDL: great er than 40 mg/dL Note: This HDL assay may give artificially low results in patients with liver disease. Blood Venous blood specimen / Unknown 04/13/2025 8:50 AM EDT 04/13/2025 8:50 AM EDT Charlee Galindo MD LAB BLOOD ORDERABLES Final Re sult [facility] [address] [place] [phone] * Cologuard?? colon cancer screening (09/30/2022) Cologuard Cancer Screen Negative Stool 09/30/2022 Charlee Galindo MD LAB MOLECULAR DIAGNOSTICS ORD ERABLES Final Result * Mammography Report 1 (06/26/2022 11:15 AM EST) Anatomical Region Laterality Modality Breast Bilateral Mammography 06/26/2022 11:1 5 AM EST Narrative 06/29/2022 10:04 AM EST Refer to the Notes tab for result details [facility] Procedure: Mammography Report 1 Procedure Note Provider, MD Mukul - 11/01/2022 Refer to the Notes tab for result details [facility] Procedure: Mammography Report 1 Charlee Galindo MD IMG BI PROCEDURES Final Resul t * THINPREP TIS PAP AND HPV mRNA E6/E7 WITH REFLEX TO HPV 16,18/45 (04/24/2022 12:00 AM EDT) Clinical Information: None given [facility] COMMENT SEE COMMENT [facility] [...] has been evaluated with computer assisted technology. [facility] Cytotechnologis t: SEE COMMENT [facility] Comment: GSG, CT(ASCP) CT screening location: [place] [address] HPV nRNA E6/E7 Not Detected Not Detected [facility] Comment: Methodology: Inside Sales Assistant-Mediated Amplification This assay detects E6/E7 viral messenger RNA (mRNA) from 14 high-risk HPV types (16,18,31,33,35,39,45,51,52,56,58,59,66,68). Cervical sources are required for HPV testing. If a vaginal source from a patient who has had a total hysterectomy with removal of cervix was submitted, please contact the testing laboratory for alternative testing options. For additional information, please refer to http://education.[employer]/faq/WEE440w7 (This link if provided for information/ educational purposes only.) Interpretation/ Result: Negative for intraepithelial lesion or malignancy. [facility] LMP: NONE GIVEN [facility] Prev. BX: NONE [facility]IVEN [facility] Prev. PAP: NONE GIVEN [facility] SOURCE: None given [facility] Statement Of Adequacy: SEE COMMENT [facility] Comment: Satisfactory for evaluation. Endocervical/transformation zone component present. 04/24/2022 us Charlee Galindo MD LAB PATHOLOGY ORDERABLES Angelica garcia Result [facility] [address] from Last 3 Months or Most Recently Relevant to Health Maintenance Insurance MEDICARE MEDICARE [place] [address] [place] [address] [place] [address] Care Teams Public Accountant Relationship Specialty Start Date End Date Charlee Galindo MD [address] [place] [phone] PCP - General Family Medicine 05/09/21
--- OUTSIDE RECORDS SUMMARY | 2025-06-29 07:42 | XMS_ITS | Encounter Summary ---
Author Organization [employer] Address [address] [facility] 7t [place] [address] Care Team Providers Care Repairer Helper Name Role Phone Charlee Galindo MD Primary Care Provider [phone] Reason for Visit * Reason Comments Med Refill Encounter Details Date Type Department [facility] Description 04/09/2023 Refill [facility] [address] [place], [place] [phone] Charlee Galindo MD [address] [place] [address] Social History Tobacco Use Types Packs/Day Years [...] documented as of this encounter Care Teams Repairer Helper Relationship Specialty Start Date End Date Charlee Galindo MD [address] [place] [address] PCP - General Family Medicine 05/09/21 documented as of this encounter
== END 2025-06-29 07:40 | disposition home or self-care (01) ==
LOC: HO.MAMMO 07:39
PROVIDERS: PCP Family Medicine; Visit Provider Family Medicine
DX: Z12.31 Encounter for screening mammogram for malignant neoplasm of breast (principal)
CPT/HCPCS: 77063; 77067

== ENCOUNTER → 2025-06-29 08:00 | Outpatient (BNV) | payer MEDICARE, SELFPAY | PROVIDERS: PCP Family Medicine; Visit Provider Internal Medicine | DX: Z12.31 Encounter for screening mammogram for malignant neoplasm of breast (principal) | CPT/HCPCS: 77063; 77067 ==

== ENCOUNTER 2025-07-02 15:41 | Outpatient (AMB) | payer MEDICARE, SELFPAY ==
--- NOTE | 2025-07-02 15:48 | A.OFFVIS_ITS ---
Intake Visit Reasons: Brain Lesion Allergies aspirin (ASA) Allergy (Severe, Verified 03/02/25 14:54) DIFFICULTY BREATHING latex (LATEX) Allergy (Unknown, Verified 03/02/25 14:54) RASH,ITCHING seafood Allergy (Unknown, Verified 03/02/25 14:54) Unknown HPI Comments Details: The patient is a 64 year old individual presenting for evaluation of chronic dizziness and abnormal CT scan findings. The patient has experienced dizziness since the age of 10, characterized by vertigo where everything feels like it is moving. These episodes occur almost daily but can have intervals of two or three days without symptoms, and a spinning sensation can last continuously. Associated symptoms include sounds in the ears, a feeling of fullness in the ears, severe nausea, and vomiting, with one past episode being severe enough to warrant calling an ambulance. Symptoms are exacerbated by eye or neck movements, and the patient reports having to stay still during episodes. The patient reports trouble in both ears, with the right ear being worse. The patient denies any loss of hearing. Past medical history includes hypercholesterolemia, for which the patient takes an unspecified medication. The patient also reports sleep apnea and uses a CPAP machine. The patient denies a history of high blood pressure and does not drink alcohol. The patient underwent surgery on the left tympanic membrane approximately 40-50 years ago. The patient was hospitalized at [facility] about two months ago but was not in the ICU. A CT scan and an MRI were performed there, which reportedly showed an abnormality. The patient had a hearing test two years ago and has an upcoming appointment for a new one. The patient already takes Meclizine and an unspecified suppository for dizziness. [facility] Medical History Pure hypercholesterolemia GERD (gastroesophageal reflux disease) Dizziness Surgical History History of section H/O left breast biopsy History of lithotripsy History of tubal ligation Family History Father No problems noted. Mother Hypertension CVD (cardiovascular disease) Maternal Grandmother Lung cancer Maternal Grandfather Esophageal cancer Paternal Grandmother Stomach cancer Paternal Grandfather Cancer Family/Other FH: mental illness Social History Household Members: Spouse Housing: House Alcohol intake: never Patient Tobacco Use Status: Current everyday Tobacco user Tobacco use type: Cigarette Cigarettes Per Day: 4 Years Smoked: 25 Current occupational status: employed Current occupation: [employer] Sexual orientation: Straight/Heterosexual Gender identity: Female Review of Systems Narrative Constitutional:? Complain of weight gain HEENT:? Complain of sinus problems and sore throat, blurred vision dryness of eyes and I pain Cardiovascular:?No chest pain, palpitations, orthopnea, PND, or leg swelling. Respiratory:? Complain of cough, shortness of breath, congestion, wheezing. Gastrointestinal:? Complain of abdominal pain nausea and vomiting Genitourinary:? Complain of incontinence and difficulty with sexual activity Musculoskeletal:? Complain of joint pain back pain neck pain and leg cramping Neurological:? Complain of headache dizziness and sleep problem Psychiatric:?No anxiety, depression, mood swings, sleep disturbance, or hallucinations. Endocrine:?No heat/cold intolerance, polydipsia, polyuria, or hair/skin changes. Hematologic/Lymphatic:?No easy bruising, bleeding, or lymphadenopathy. Integumentary (Skin):? Complain of rash itching and redness Allergic/Immunologic:?No seasonal allergies, hives, or recurrent infections. Physical Exam Neuro Other: Mental Status: Alert and oriented to person, place, and time. Normal attention. Normal spontaneous speech, fluency, and comprehension. No obvious issues with mood and memory. Affect is appropriate. Cranial Nerves: CN II: Visual drake full to confrontation, visual acuity intact. CN III, IV, : Pupils equal, round, reactive to light and accommodation. Extraocular movements are normal. CN V: Facial sensation is normal. CN VII: Facial movements symmetrical. CN VIII: Hearing intact to bedside conversation is normal. CN IX, X: Palate elevates symmetrically. CN XI: Shoulder shrug and head turn symmetrical. CN XII: Tongue midline without atrophy or fasciculations. Motor: Bulk and tone normal in all extremities. No significant muscle weakness in arms and legs. No drift. Reflexes: Deep tendon reflexes 2+ and symmetric. Plantar response down-going bilaterally. Coordination: Aynlql-lj-oidy and zvrf-bl-sess testing normal. No dysmetria. Gait and Station: No obvious gait abnormality. No ataxia or instability. Sensory: Intact to light touch, pinprick, and vibration. Romberg is negative. Extrapyramidal: Full facial expressions and blinking. No rigidity. Movements are appropriate with no tremor or abnormality. Speech: Normal; no dysarthria or tremor. Assessment & Plan Assessment & Plan (1) Cerebral microvascular disease: Comment: CT brain WO at [facility] in Nov 2024: [place] MRI brain WO at [facility] in February 2025: Mod MVD Code(s): I67.89 - Other cerebrovascular disease Category: Medical (2) Meniere syndrome: Code(s): H81.09 - Meniere's disease, unspecified ear Category: Medical Qualifiers: Laterality: bilateral Qualified Code(s): H81.03 - Meniere's disease, bilateral Plan Impression: 1. Probably Meniere's syndrome, which she has been suffering from since he was a teenager. 2. Microvascular ischemic disease of brain, usually associated with hypertension and similar risk factors but could also be genetic in origin Recommendations: 1. Reassurance and education about many years syndrome 2. Meclizine 12.5-25 mg a day as needed 3. Appropriate hydration during an attack 4. Audiogram Medications: New meclizine 12.5 mg orally bid prn for dizziness; 60 tabs 0RF dizziness Coding Level of Care Code New Pt Level 4 (32535) Diagnoses Cerebral microvascular disease I67.89 Meniere's disease of both ears H81.03 Laterality: bilateral
--- OUTSIDE RECORDS SUMMARY | 2025-07-02 20:11 | XMS_ITS | Encounter Summary ---
Author Organization [employer] Address 75 [facility] 7t [place] [address] Care Team Providers Care Piano Regulator Inspector Name Role Phone Charlee Galindo MD Primary Care Provider [phone] Reason for Visit * Reason Comments Med Refill Encounter Details Date Type Department Care Team ([facility] Contact Info) Description 12/05/2024 Refill [facility] [address] [place], [place] [phone] Meggan Wallace MD [address] [place] [address] Vertigo Social History Tobacco Use Types Packs/Day [...] documented as of this encounter Care Teams Piano Regulator Inspector Relationship Specialty Start Date End Date Charlee Galindo MD [address] [place] [phone] PCP - General Family Medicine 05/09/21 documented as of this encounter
--- OUTSIDE RECORDS SUMMARY | 2025-07-02 20:11 | XMS_ITS | Clinical Summary ---
Author Organization [employer] Address [address] [facility] [address] [place] [address] Care Team Providers Care Data Sme Name Role Phone Charlee Galindo MD Primary Care Provider [phone] Allergies Active Allergy Reactions Criticality Noted Date [...] epidermal inclusion cyst. Plan: - Refer to cosmetology instructor for evaluation and potential treatment of forehead lesion Dry eyes, bilateral 03/24/2024 Assessment & Plan (03/26/2024 10:00 PM EDT): Pt was referred to Ophthalmology for further evaluation. Chronic pain of right knee 03/24/2024 Assessment & Plan (01/02/2025 9:48 AM EDT): Patient reports right knee pain and requests referral for injection therapy. Patient was previously seen at [facility] for this issue. Plan: - Refer to [...] of major depressive disorder without prior episode ([facility]/HCC) 11/30/2023 Overview (11/30/2023): During [facility] Consult [...] intervention and Patient to reach out to [facility] team as needed Polyarthralgia 10/29/2023 Assessment & [...] Description 06/15/2025 8:45 AM EST Office Visit [facility] [address] [place] [address] Charlee Galindo MD Moderate persistent asthma with acute exacerbation (Primary Dx); Obstructive sleep apnea syndrome; Tinnitus, unspecified laterality; Vertigo; Hyperlipidemia, unspecified hyperlipidemia type 06/15/2025 Travel 06/14/2025 Travel 06/14/2025 Telephone [facility] [address] [place] [address] Charlee Galindo MD Chart Prep 05/25/2025 Refill [facility] [address] [place] [address] Charlee Galindo MD from Last 3 Months [...] 2) 2008 FOBT 09/30/2023 09/30/2022 Mammogram 06/26/2024 06/29/2025, 06/09, 06/20/2021 COVID-19 Vaccine ( season) 2025 06/01/2024, 05/27/2023, 12/07/2020, Additional history exists Influenza Vaccine (#1) 2025 2, 05/09/2021, 07/15/2020, Additional history exists Depression Monitoring [...] Procedure Name Priority Date/Time Associated Diagnosis Comments BI MAMMOGRAM SCREENING TOMOSYNTHESIS BILATERAL Routine 06/29/2025 7:54 AM EST Breast cancer screening by mammogram HEPATITIS C AB W/REFL TO HCV RNA, QN, PCR Routine 04/13/2025 8:50 AM EDT Encounter for health-related screening LIPID PANEL, STANDARD Routine 04/13/2025 8:50 AM EDT Hyperlipidemia, unspecified hyperlipidemia type LAB COLOGUARD COLON CANCER SCREEN Routine 09/30/2022 THINPREP IMAGING PAP AND HPV MRNA E6/E7 WITH REFLEX TO HPV 16,18/45 Routine 04/24/2022 12:00 AM EDT from Last 3 Months or Most Recently Relevant to Health Maintenance Results * BI Mammogram Screening Tomosynthesis Bilateral (06/29/2025 7:54 AM EST) Anatomical Region Laterality Modality Breast Bilateral Mammography 06/29/2025 7:54 AM EST Narrative 07/02/2025 5:08 PM EST [facility] [address] [place] [address] Mammography Report Signed Patient: Jovanna Garcia MR#: [id number] : 1960 Acct:[id number] Age/Sex: 64 / F ADM Date: 06/29/25 Loc: .MAMMO Attending Dr: Charlee Galindo MD Ordering Physician: Charlee Galindo MD Results: 1Nega tive Date of Service: 06/29/25 Follow Up: 1 Year From Orig ina Mammogram Procedure(s): MM tomosynthesis screening BI Accession Number(s): [id number] cc: Charlee Galindo MD Reason For Exam: 64 yo F who needs breast CA screening, send to [facility] EXAMINATION: MM SCREENING DIGITAL BREAST TOMOSYNTHESIS, BILATERAL CLINICAL INFORMATION: Screening. Asymptomatic. COMPARISON: Mammography: Comparison is made with available priors TECHNIQUE: Digital breast mammography with tomosynthesis is performed in both the craniocaudal and mediolateral oblique views along with computer-aided detection (CAD). FINDINGS: The breasts are heterogeneously dense, which may obscure small masses. There are no significant masses, abnormal calcifications, or other abnormalities. MM/MM tomosynthesis screening BI IMPRESSION: No mammographic evidence of malignancy. ASSESSMENT: BI-RADS Category 1: Negative RECOMMENDATION: Routine annual mammography screening. 1 year F/U This examination should not preclude the clinical evaluation of a suspicious palpable abnormality. This patient's information was entered into a reminder system with a target due date for their next mammogram. Electronically signed by: Emy Marie DO 07/02/2025 05:05 PM [facility] Dictated By: Emy Marie DO Signed By: <Electronically signed by Emy Marie DO in OV> 07/02/25 1705 DD/ 0754 TD/TT: 06/29/25 0804 Seamer Operator: Procedure Note Donotuseinterpreter, Image - 07/02/2025 [facility] [address] [place] [address] Mammography Report Signed Patient: Donn Garcia#: [id number] : 9Acct:[id number] Age/Sex: 64 / FADM Date: 06/29/25 Loc: HO.MAMMO Attending Dr: Charlee Galindo MD Ordering Physician: Charlee Galindo MDResults: 1Nega tive Date of Service: 06/29/25Follow Up: 1 Year From Orig inal Mammogram Procedure(s): MM tomosynthesis screening BI Accession Number(s): [id number] cc: Charlee Galindo MD Reason For Exam: 64 yo F who needs breast CA screening, send to [facility] EXAMINATION: MM SCREENING DIGITAL BREAST TOMOSYNTHESIS, BILATERAL CLINICAL INFORMATION: Screening. Asymptomatic. COMPARISON: Mammography: Comparison is made with available priors TECHNIQUE: Digital breast mammography with tomosynthesis is performed in both the craniocaudal and mediolateral oblique views along with computer-aided detection (CAD). FINDINGS: The breasts are heterogeneously dense, which may obscure small masses. There are no significant masses, abnormal calcifications, or other abnormalities. MM/MM tomosynthesis screening BI IMPRESSION: No mammographic evidence of malignancy. ASSESSMENT: BI-RADS Category 1: Negative RECOMMENDATION: Routine annual mammography screening. 1 year F/U This examination should not preclude the clinical evaluation of a suspicious palpable abnormality. This patient's information was entered into a reminder system with a target due date for their next mammogram. Electronically signed by: Emy Marie DO 07/02/2025 05:05 PM [facility] Dictated By: Emy Marie DO Signed By: <Electronically signed by Emy Marie DO in OV> 07/02/25 1705 DD/ 0754 TD/TT: 06/29/25 0804 Seamer Operator: Charlee Galindo MD IMG BI PROCEDURES Final Resul t * Hepatitis C Antibody with Reflex to HCV, RNA, Quantitative, Real-Time PCR (04/13/2025 8:50 AM EDT) Hepatitis C Antibody Nonreactive Nonreactive [facility] Comment:Antibodies to HCV no t detected; does not exclude early acuteHCV infection. Blood Venous blood specimen / Unknown 04/13/2025 8:50 AM EDT 04/13/2025 8:50 AM EDT us Charlee Galindo MD LAB BLOOD ORDERABLES Final Re sult [facility] [address] [place] [phone] * (ABNORMAL) Lipid Panel, Standard (04/13/2025 8:50 AM EDT) Triglycerides 212(H) <150 mg/dL [facility] Comment:Desirable Triglyceri de: less than 150 mg/dLBorderline High Triglyceride 150-199 mg/dLHigh Triglyceride: 200-499 mg/dLVery High Triglyceride: greater than or equal to 5OO mg/dL Cholesterol 135 <200 mg/dL [facility] Comment:Desirable Cholestero l: less than 200 mg/dLBorderline High Cholesterol: 200-239 mg/dLHigh Cholesterol: greater than 239 mg/dL LDL Cholesterol Calculated 57 <100 mg/dL [facility] Comment:Desirable LDL: less than 100 mg/dLNear Optimal/Above Optimal LDL: 110- 129 mg/dLBorderline High LDL: 130-159 mg/dLHigh LDL: 160-189 mg/dLVery High LDL: greater than or equal to 190 mg/dL HDL Cholesterol 36(L) >40 mg/dL [facility] Comment:Desirable HDL: great er than 40 mg/dL Note: This HDL assay may give artificially low results in patients with liver disease. Blood Venous blood specimen / Unknown 04/13/2025 8:50 AM EDT 04/13/2025 8:50 AM EDT Charlee Galindo MD LAB BLOOD ORDERABLES Final Re sult [facility] [address] [place] [phone] * Cologuard?? colon cancer screening (09/30/2022) Cologuard Cancer Screen Negative Stool 09/30/2022 Charlee Galindo MD LAB MOLECULAR DIAGNOSTICS ORD ERABLES Final Result * THINPREP TIS PAP AND HPV mRNA E6/E7 WITH REFLEX TO HPV 16,18/45 (04/24/2022 12:00 AM EDT) Clinical Information: None given [facility] COMMENT SEE COMMENT [facility] [...] has been evaluated with computer assisted technology. [facility] Cytotechnologis t: SEE COMMENT [facility] Comment: GSG, CT(ASCP) CT screening location: [address] [address] HPV nRNA E6/E7 Not Detected Not Detected [facility] Comment: Methodology: Roll Carrier-Mediated Amplification This assay detects E6/E7 viral messenger RNA (mRNA) from 14 high-risk HPV types (16,18,31,33,35,39,45,51,52,56,58,59,66,68). Cervical sources are required for HPV testing. If a vaginal source from a patient who has had a total hysterectomy with removal of cervix was submitted, please contact the testing laboratory for alternative testing options. For additional information, please refer to [email or web address]/faq/GXF716w4 (This link if provided for information/ educational purposes only.) Interpretation/ Result: Negative for intraepithelial lesion or malignancy. [facility] LMP: NONE [facility]IV[facility] Prev. BX: NONE [facility]IV[facility] Prev. PAP: NONE [facility]IV[facility] SOURCE: None given [facility] Statement Of Adequacy: SEE COMMENT [facility] Comment: Satisfactory for evaluation. Endocervical/transformation zone component present. 04/24/2022 us Charlee Galindo MD LAB PATHOLOGY ORDERABLES Angelica garcia Result [facility] [address] from Last 3 Months or Most Recently Relevant to Health [place] [id number] MEDICARE [facility] [address] [address] [id number] [place] [address] Care Teams Data Sme Relationship Specialty Start Date End Date Charlee Galindo MD [address] [place] [phone] PCP - General Family Medicine 05/09/21
--- OUTSIDE RECORDS SUMMARY | 2025-07-02 20:11 | XMS_ITS | Encounter Summary ---
Author Organization [employer] Address [address] [facility] [address] [place] [address] Care Team Providers Care Slurry Tank Operator Name Role Phone Charlee Galindo MD Primary Care Provider [phone] Reason for Visit * Reason Comments Med Refill Encounter Details Date Type Department Care Team ([facility] Contact Info) Description 04/09/2023 Refill [facility] [address] [place], [place] [phone] Charlee Galindo MD [address] [place] [address] Social History Tobacco Use Types Packs/Day Years [...] documented as of this encounter Care Teams Slurry Tank Operator Relationship Specialty Start Date End Date Charlee Galindo MD [address] [place] [phone] PCP - General Family Medicine 05/09/21 documented as of this encounter
--- OUTSIDE RECORDS SUMMARY | 2025-07-02 20:11 | XMS_ITS | Encounter Summary ---
Author Organization [employer] Address [address] [facility] [address] [place] [address] Care Team Providers Care Waste Cotton Cleaner Name Role Phone Charlee Galindo MD Primary Care Provider [phone] Reason for Visit * Reason Onset Date Comments Referral 03/02/2025 Encounter Details Date Type Department Care Team ([facility] st Contact Info) Description 03/02/2025 Telephone C [facility] [address] [place], [place] [phone] Charlee Galindo MD [address] [place] [address] Referral Social History Tobacco Use Types Packs/Day [...] to call us back regarding request. [facility] doesn't have a dermatology department, not sure if patient was referring to dermatology here at [facility]. * Telephone Encounter - Hannah Quinones - 03/02/2025 9:37 AM EDT Tc from pt requesting dermatology at [facility]. Pt stated PCP is aware of concerns. Denied triage Contact pt at [phone] documented in this encounter Plan of Treatment Not on file documented as of this encounter Visit Diagnoses Not on filedocumented in this encounter Additional Health Concerns Assessment Noted Time PHQ-9 Depression Total Score: 12 025 10:03 AM EDT documented as of this encounter Care Teams Waste Cotton Cleaner Relationship Specialty Start Date End Date Charlee Galindo MD [address] [place] [address] PCP - General Family Medicine 05/09/21 documented as of this encounter
== END 2025-07-02 16:20 | disposition home or self-care (01) ==
LOC: HO.HSM 15:42
PROVIDERS: PCP Family Medicine; Visit Provider Psychiatry & Neurology Neurology
DX: I67.89 Other cerebrovascular disease (principal); H81.03 Meniere's disease, bilateral
CPT/HCPCS: 99204

== ENCOUNTER → 2025-07-02 15:41 | Outpatient (BNVA) | payer MEDICARE, SELFPAY | PROVIDERS: PCP Family Medicine; Visit Provider Psychiatry & Neurology Neurology | DX: H81.03 Meniere's disease, bilateral (principal); I67.89 Other cerebrovascular disease | CPT/HCPCS: 99202 ==